=== PATIENT | female | born 1990 | race African-American/Black ===

== ENCOUNTER 2023-12-05 04:15 | Inpatient (IN) | payer MEDICAID ==
[2023-12-05] VITALS (7 sets, daily range): BP systolic 134–137; BP diastolic 82–84; PULSE 94–125; RESP 12–22; TEMP 97.9–98.1; O2SAT 97–100
[~2023-12-05] VITALS: Ht 147.3 cm; Wt 68.6 kg
[2023-12-05 05:32] LABS: Basophils # (auto) 0.1 10 ^3/uL (0-0.2); Eosinophils # (auto) 0 10 ^3/uL (0-0.8); Eosinophils % (auto) 0.8 % (0.0-7.0); Hemoglobin 9.5 g/dL (12.2-16.2); Neutrophils # (auto) 2.5 10 ^3/uL (1.6-8.6); White Blood Cell 3.7 10^3/uL (4.4-10.8)
[2023-12-05 05:35] LABS: Basophils % (auto) 1.7 % (0.0-2.0); Hematocrit 28.6 % (36.0-46.0); Lymphocytes # (auto) 0.8 10 ^3/uL (0.4-5.4); Lymphocytes % (auto) 22.5 % (10.0-50.0); Mean Corpuscular Hemoglobin 22.3 pg (28.0-32.0); Mean Corpuscular Hgb Conc. 33.3 g/dL (32.0-36.0); Monocytes # (auto) 0.3 10 ^3/uL (0-1.3); Monocytes % (auto) 7.2 % (0.0-12.0); Neutrophils % (auto) 67.8 % (37.0-80.0); Nucleated Red Blood Cells % 1.3 %; Red Blood Cells 4.27 10^6/uL (4.0-5.20)
[2023-12-05 05:40] LABS: Anion Gap 11 (5-15); Carbon Dioxide 22 mmol/L (20-30); Chloride 105 mmol/L (98-107); Potassium 3.2 mmol/L (3.5-5.1); Red Cell Distribution Width 21.8 % (11.8-14.3); Sodium 138 mmol/L (136-145)
[2023-12-05 05:41] LABS: Calcium 9.9 mg/dL (8.7-10.4)
[2023-12-05 05:46] LABS: Glucose 102 mg/dL (74-106)
[2023-12-05] MEDS: SODIUM CHLORIDE 0.9% 1,000 ML IV ONE ×3 (05:50→09:40)
[2023-12-05] MEDS: HYDROmorphone HCL 2 MG/ML VL/or syr IV ONE (05:50)
[2023-12-05] MEDS: ONDANSETRON HCL 4 MG/2 ML VIAL IV ONE (05:54)
[2023-12-05 06:08] LABS: BUN/Creatinine Ratio 6.7 (10.0-20.0); Blood Urea Nitrogen < 5 mg/dL (9-23)
[2023-12-05 06:59] LABS: Anisocytosis Slight; Hypochromia Moderate; Platelet Estimate Decreased; Target Cell MANY
[2023-12-05] MEDS ORDERED: IBUP-1455 PO (08:57)
[2023-12-05] MEDS ORDERED: AMOX500C2 PO (08:57)
[2023-12-05] MEDS ORDERED: ACETAMINOPHEN 325 MG TAB PO PRN (09:30)
[2023-12-05] MEDS: SODIUM CHLORIDE 0.9% 1,000 ML IV SCH (09:30)
[2023-12-05] MEDS ORDERED: ENOXAPARIN SOD 40 MG/0.4 ML SYRINGE SC SCH (10:00)
[2023-12-05 10:12] LABS: Alanine Aminotransferase 55 U/L (7-40); Albumin 4.6 g/dL (3.2-4.8); Alkaline Phosphatase 63 U/L (46-116); Aspartate Aminotransferase 50 U/L (13-40); Magnesium 1.8 mg/dL (1.6-2.6); Total Protein 7.9 g/dL (5.7-8.2)
[2023-12-05 10:50] LABS: Urine WBC None Seen /hpf (0 - 5)
[2023-12-05 11:01] LABS: Urine Bacteria FEW /hpf (None Seen); Urine Blood Negative /uL (Negative); Urine Clarity Clear (Clear); Urine Color Light-Yellow (Yellow); Urine Hyaline Cast FEW /lpf (0 - 2); Urine Mucus FEW (None Seen); Urine Protein, UAD Negative (Negative); Urine Urobilinogen Normal (Negative)
[2023-12-05] MEDS: POTASSIUM EFFERVESENT TAB 25 MEQ PO ONE (13:13)
[2023-12-05] MEDS: HYDROmorphone HCL 2 MG/ML VL/or syr IV PRN (13:14)
[2023-12-05] MEDS: ONDANSETRON HCL 4 MG/2 ML VIAL IV PRN (13:15)
[2023-12-05] MEDS: HYDROcodone-ACET 5/325MG TAB PO PRN (16:39)
[2023-12-05] MEDS: IBUPROFEN 800 MG TAB PO PRN (20:30)
[2023-12-06 01:00] VITALS: BP 135/84; PULSE 91; RESP 22; TEMP 97.9; O2SAT 99
[2023-12-06 05:00] VITALS: BP 141/95; PULSE 92; RESP 22; TEMP 98.3; O2SAT 98
[2023-12-06 06:01] LABS: Basophils # (auto) 0 10 ^3/uL (0-0.2); Basophils % (auto) 0.7 % (0.0-2.0); Eosinophils # (auto) 0.1 10 ^3/uL (0-0.8); Hemoglobin 7.8 g/dL (12.2-16.2); Mean Corpuscular Hemoglobin 22.6 pg (28.0-32.0); Mean Corpuscular Hgb Conc. 33.2 g/dL (32.0-36.0); White Blood Cell 3.2 10^3/uL (4.4-10.8)
[2023-12-06 06:04] LABS: Hematocrit 23.4 % (36.0-46.0); Lymphocytes # (auto) 1.5 10 ^3/uL (0.4-5.4); Lymphocytes % (auto) 47.6 % (10.0-50.0); Monocytes # (auto) 0.1 10 ^3/uL (0-1.3); Monocytes % (auto) 4.5 % (0.0-12.0); Neutrophils # (auto) 1.4 10 ^3/uL (1.6-8.6); Neutrophils % (auto) 44.2 % (37.0-80.0); Nucleated Red Blood Cells % 0.8 %; Red Blood Cells 3.43 10^6/uL (4.0-5.20)
[2023-12-06 06:09] LABS: Red Cell Distribution Width 22.2 % (11.8-14.3)
[2023-12-06 06:25] LABS: Alanine Aminotransferase 38 U/L (7-40); Albumin 3.7 g/dL (3.2-4.8); Alkaline Phosphatase 50 U/L (46-116); Anion Gap 6 (5-15); Aspartate Aminotransferase 37 U/L (13-40); Bilirubin, Total 1.3 mg/dL (0.2-1.0); Calcium 8.6 mg/dL (8.5-10.1); Carbon Dioxide 26 mmol/L (20-30); Chloride 106 mmol/L (98-107); Glucose 85 mg/dL (74-106); Potassium 3.5 mmol/L (3.5-5.1); Sodium 138 mmol/L (136-145); Total Protein 6.3 g/dL (5.7-8.2)
[2023-12-06 06:41] LABS: BUN/Creatinine Ratio 7.8 (10.0-20.0); Blood Urea Nitrogen < 5 mg/dL (9-23)
[2023-12-06 09:00] VITALS: BP 122/70; PULSE 110; RESP 18; TEMP 98.3; O2SAT 99
[2023-12-06 12:38] VITALS: BP 145/95; PULSE 86; RESP 18; TEMP 98.5; O2SAT 100
[2023-12-06] MEDS: FERROUS SULFATE 325mg EC TAB PO SCH (16:19)
[2023-12-06] MEDS: MULTIPLE VITAMIN TAB PO ONE (16:19)
[2023-12-06 16:40] VITALS: BP 155/95; PULSE 107; RESP 19; TEMP 98.3; O2SAT 100
[2023-12-06] MEDS: DOCUSATE SOD 100 MG CAP PO SCH (20:57)
[2023-12-06 21:00] VITALS: BP 155/111; PULSE 103; RESP 17; TEMP 98; O2SAT 99
[2023-12-07 01:00] VITALS: BP 158/110; PULSE 83; RESP 17; TEMP 98.3; O2SAT 99
[2023-12-07] MEDS ORDERED: MULTIPLE VITAMIN TAB PO SCH (10:00)
== END 2023-12-07 02:44 | disposition left against medical advice (07) | DRG 662 ==
LOC: EDBD 04:15 → ER 04:15 → OVERFLOW 09:28 → WEST WING 15:28
PROVIDERS: ADMIT Nurse Practitioner Family; ATTEND Nurse Practitioner Acute Care
DX: D57.00 Hb-SS disease with crisis, unspecified (principal); D69.6 Thrombocytopenia, unspecified; D50.9 Iron deficiency anemia, unspecified; E87.6 Hypokalemia; E66.9 Obesity, unspecified; K59.00 Constipation, unspecified; Z53.29 Procedure and treatment not carried out because of patient's decision for other reasons; Z68.31 Body mass index [BMI] 31.0-31.9, adult; Z88.6 Allergy status to analgesic agent; Z91.012 Allergy to eggs; Z91.018 Allergy to other foods
CPT/HCPCS: 36415; 80053; 81001; 83615; 83735; 84702; 85025; 85045; 86850; 86900; 86901; 96361; 96374; 96375; G0378; J2405

== ENCOUNTER 2024-06-12 15:43 | Emergency (ER) | payer MEDICAID ==
[~2024-06-12] VITALS: Ht 147.3 cm; Wt 61.0 kg
[~2024-06-12 15:43] MED LIST: AMOX500C2 PO; IBUP-1455 PO
[2024-06-12] MEDS ORDERED: BACDST PO (18:59)
[2024-06-12] MEDS ORDERED: ACET500T58 PO (18:59)
[2024-06-12] MEDS ORDERED: ZOFR4T PO (19:01)
--- NOTE | 2024-06-12 19:01 | ED.PDOC ---
General HPI Comments 33-YEAR-OLD FEMALE PRESENTS TO ER WITH URINARY COMPLAINT X5 DAYS. PATIENT REPORTS THAT SHE HAS BEEN EXPERIENCING LOWER PELVIC PRESSURE X5 DAYS WITH ASSOCIATED LOWER BACK PAIN, PAINFUL URINATION AND NAUSEA/VOMITING X3 DAYS AND HEMATURIA AND CHILLS X1 DAY. REPORTS THAT SHE HAS BEEN TAKING IBUPROFEN ALONG WITH OTC "AZO" FOR HER SYMPTOMS WITH SLIGHT RELIEF. SHE REPORTS 8/10 LOWER PELVIC PRESSURE PAIN WITH RADIATION TOWARDS THE LOWER BACK. PATIENT PRESENTS TO ER WITH LOW-GRADE FEVER ON ARRIVAL AT 99.8 F, AMBULATORY, ALERT AND ORIENTED X4, WITH STEADY GAIT, DENYING ANY KNOWN FEVER PRIOR TO ARRIVAL TO ER. DENIES NIGHT SWEATS, ABDOMINAL PAIN, HEADACHE, DIZZINESS, FLANK PAIN, FURTHER CHANGES N URINATION OR ANY FURTHER SYMPTOMS/COMPLAINTS Chief Complaint: Urinary Time Seen by MD: 18:12 Primary Care Provider: BECKI Rivas notes: Nurses Notes, Medications, Allergies Allergies: Coded Allergies: Hydrocodone (Verified Allergy, Mild, itchy hands, 12/05/23) Egg-derived Products (Verified Allergy, Unknown, 12/05/23) Pineapple (Verified Allergy, Unknown, 12/05/23) Home Meds Active Scripts Ondansetron Odt 4MG Tab (ZOFRAN PO) 4 Mg Tb, 4 MG PO TID PRN, #14 TAB 0 Refills ODT TAB-DISSOLVE IN MOUTH, THEN SWALLOW Prov:NICOLE LAKHANI 06/12/24 Acetaminophen (Acetaminophen) 500 Mg Tab, 500 MG PO Q4HPRN, #30 TAB 0 Refills Prov:NICOLE LAKHANI 06/12/24 Sulfamethoxazole W/Trimethopri (Bactrim Ds Tablet) 1 Tab Tb, 1 TAB PO BID for 7 Days, #14 TAB 0 Refills Prov:NICOLE LAKHANI 06/12/24 Reported Medications Ibuprofen Micronized (Ibuprofen) 800 Mg Tab, 1 TAB PO Q8HPRN PRN 12/05/23 Amoxicillin Trihydrate (Amoxicillin) 500 Mg Cap, 1 CAP PO TID 12/05/23 Information Source: Patient Mode of Arrival: Ambulatory Past Medical History Past Medical History (Other): SICKLE CELL ANEMIA Surgical History: , Tonsillectomy 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 TARIFF SUPERVISOR History Family History Family History: Unknown Social History Smoker: Non-Smoker Alcohol: Denies ETOH Use Drugs: Denies Drug Use Lives In: Home Constitutional: reports: others (As stated in HPI) EENTM: denies: blurred vision, double vision, ear bleeding, ear discharge, ear drainage, ear pain, ear ringing, eye pain, eye redness, hearing loss, mouth pain, mouth swelling, nasal discharge, nose bleeding, nose congestion, nose pain, photophobia, tearing, throat pain, throat swelling, voice changes, others Respiratory: denies: cough, hemoptysis, orthopnea, SOB at rest, shortness of breath, SOB with excertion, stridor, wheezing, others Cardiovascular: denies: chest pain, dizzy spells, diaphoresis, Dyspnea on exertion, edema, irregular heart beat, left arm pain, lightheadedness, palpitations, PND, syncope, others Gastrointestinal: denies: abdomen distended, abdominal pain, blood streaked bowels, constipated, diarrhea, dysphagia, difficulty swallowing, hematemesis, melena, nausea, poor appetite, poor fluid intake, rectal bleeding, rectal pain, vomiting, others Genitourinary: reports: others (As stated in HPI) Neurological: denies: dizziness, fainting, headache, left sided numbness, left sided weakness, numbness, paresthesia, pre-existing deficit, right sided numbness, right sided weakness, seizure, speech problems, tingling, tremors, weakness, others Musculoskeletal: reports: others (As stated in HPI) Integumetry: denies: bruises, change in color, change in hair/nails, dryness, laceration, lesions, lumps, rash, wounds, others Allergic/Immunocompromised: denies: Difficulty Healing, Frequent Infections, Hives, Itching, others Hematologic/Lymphatic: denies: anemia, blood clots, easy bleeding, easy bruising, swollen glands, others Endocrine: denies: excessive hunger, excessive sweating, excessive thirst, excessive urination, flushing, intolerance to cold, intolerance to heat, unexplained weight gain, unexplained weight loss, others Psychiatric: denies: anxiety, bipolar disorder, depression, hopeless, panic disorder, schizophrenia, sleepless, suicidal, others Physical Exam General Appearance: No Apparent Distress, Normal HEENT: PERRL/EOMI Neck: Full Range of Motion, Non-Tender, Normal Respiratory: Chest Non-Tender, Lungs Clear, No Accessory Muscle Use, No Respiratory Distress, Normal Breath Sounds Cardiovascular: No Murmur, No Gallop, Regular Rate/Rhythm Breast Exam: Deferred Gastrointestinal: No Organomegaly, No Pulsatile Mass, Normal Bowel Sounds, Soft, Suprapubic (Slight TTP to suprapubic region noted. No rebound/guarding noted) Genitalia: Deferred Pelvic: Deferred Rectal: Deferred Extremities: Normal capillary refill, Normal range of motion Musculoskeletal : Extremity Location: Back (Slight TTP centralized the lower lumbar spine noted. No TTP to bilateral flanks or CVA tenderness noted bilaterally. Steady gait appreciated) Neurologic: Alert, manager primary II-XII nml as Tested, No Motor Deficits, Normal Affect, Normal Mood, No Sensory Deficits Cerebellar Function: Normal Reflexes: Normal Skin: Dry, Normal Color, Warm Peripheral Pulses: 2+ Radial (R), 2+ Radial (L), 2+ Brachial (R), 2+ Brachial (L) Lymphatic: No Adenopathy Was a procedure done? Was a procedure done?: No Sedation Sedation?: No Differential Diagnosis Kidney stone (Female): N/A Urinary Problem (Female): Intrauterine , Pyelonephritis, Urinary ret ention, Urolithiasis, Other (Urosepsis) X-Ray, Labs, Meds, VS Vital Signs Date Time Temp Pulse Resp B/P (MAP) Pulse Ox O2 Delivery O2 Flow Rate FiO2 06/12/24 20:47 103.3 06/12/24 20:15 103.1 119 14 149/95 (113) 98 103.1 06/12/24 18:32 97 17 97 Room Air 06/12/24 18:32 99.7 97 17 147/97 (114) 97 99.7 06/12/24 15:56 99.8 100 16 151/97 (115) 98 Lab Test 06/12/24 15:56 Range/Units Urine Color Light-brown Yellow Urine Clarity Ex.turbid Clear Urine pH 7.5 5.0-9.0 Urine Specific [place] 1.014 1.001-1.035 Urine Protein 2+ H Negative Urine Ketones Trace Negative Urine Blood 2+ H Negative /uL Urine Nitrite Negative Negative Urine Bilirubin Negative Negative Urine Urobilinogen 4 H Negative mg/dL Urine Leukocyte Esterase 3+ Negative /uL Urine RBC 51 0 - 4 /hpf Urine WBC 2765 0 - 5 /hpf Urine WBC Clumps Present None Seen /hpf Urine Squamous Epithelial Cells None seen <5 /hpf Urine Bacteria Few H None Seen /hpf Urine Mucus Few None Seen Urine Glucose Normal Normal mg/dL Urine Test Negative Negative Current Medications Medications (Trade) Dose Ordered Sig/Jolie Route Start Time Stop Time Status Last Admin Acetaminophen (Tylenol Tablet) 650 mg ONCE ONCE PO 06/12/24 18:45 06/12/24 18:46 DC 06/12/24 19:31 Ceftriaxone Sodium 50 ml @ 100 mls/hr ONCE ONCE IV 06/12/24 18:45 06/12/24 19:14 DC 06/12/24 19:34 Ondansetron HCl (Zofran Po) 4 mg ONCE ONCE PO 06/12/24 18:45 06/12/24 18:46 DC 06/12/24 19:31 Sodium Chloride 1,000 ml @ 1,000 mls/hr Q1H ONCE IV 06/12/24 19:15 06/12/24 20:14 DC 06/12/24 19:27 Urinalysis reviewed-urine leukocyte esterase 3+, urine blood 2+, urine nitrites negative Urine reviewed-negative Hep-Lock IV ordered NS 1 L IV ordered Rocephin 1 g IV ordered Zofran 4 mg p.o. ordered CBC ordered- patient refused BMP ordered- patient refused Tylenol 650 mg PO ordered Ibuprofen 800 mg PO ordered Advised to drink plenty of fluids Advised to f/u with PCP in 1-2 days Patient stated she no longer wanted to stay in ER and would like to leave AMA Several attempts were made to convince patient to stay for further evaluation/treatment without success Risks of leaving AMA were discussed with patient in full details including risk of sepsis and risk of . Patient verbalized understanding Patient left the ER AMA and refused to sign AMA paperwork Time of 1ST Reevaluation: 18:24 Reevaluation 1ST: N/A Patient Education/Counseling: Diagnosis, Treatment, Need For Follow Up, Other (Patient left ER AMA) Family Education/Counseling: No Family Present Departure 1 Departure Time of Disposition: 20:54 Impression: Primary Impression: UTI (urinary tract infection) Qualified Codes: N30.01 - Acute cystitis with hematuria Disposition: 07 LEFT AGAINST MEDICAL ADVICE Condition: Serious Critical Care Note Critical Care Time?: No Stability Stability form required: No Heart Score Heart Score: Heart Score Response (Comments) Value History N/A 0 EKG N/A 0 Age N/A 0 Risk Factors N/A 0 Troponin N/A 0 Total 0 NICOLE LAKHANI Jun 12, 2024 19:01
[2024-06-12] MEDS: SODIUM CHLORIDE 0.9% 1,000 ML IV ONE (19:27)
[2024-06-12] MEDS: ACETAMINOPHEN 325 MG TAB PO ONE (19:31)
[2024-06-12] MEDS: ONDANSETRON ODT 4 MG TAB PO ONE (19:31)
[2024-06-12] MEDS: cefTRIAXone 1GM/50ML D5W 50 ML IV ONE (19:34)
[2024-06-12 20:15] VITALS: BP 149/95; PULSE 119; RESP 14; O2SAT 98
[2024-06-12 20:55] VITALS: TEMP 103.3
[2024-06-12] MEDS: IBUPROFEN 800 MG TAB PO ONE (20:55)
== END 2024-06-12 20:54 | disposition left against medical advice (07) ==
LOC: ER 15:43
DX: N39.0 Urinary tract infection, site not specified (principal); Z88.8 Allergy status to other drugs, medicaments and biological substances; Z79.899 Other long term (current) drug therapy; Z98.890 Other specified postprocedural states; Z90.89 Acquired absence of other organs
CPT/HCPCS: 96365; 99284; J0696; J7030; Q0162

== ENCOUNTER 2024-08-14 09:12 | Inpatient (IN) | payer MEDICAID ==
[~2024-08-14] VITALS: Ht 147.3 cm; Wt 56.0 kg
[2024-08-14 10:28] LABS: Urine Bacteria FEW /hpf (None Seen); Urine Blood 1+ /uL (Negative); Urine Clarity Clear (Clear); Urine Color Yellow (Yellow); Urine Protein, UAD 3+ (Negative); Urine Specific Gravity 1.018 (1.001-1.035); Urine Squamous Epithelial Cell FEW /hpf (<5); Urine Urobilinogen 4 mg/dL (Negative); Urine WBC 9 /HPF (0-5)
[2024-08-14 10:54] LABS: Basophils # (auto) 0 10 ^3/uL (0-0.2); Eosinophils # (auto) 0 10 ^3/uL (0-0.8)
[2024-08-14 10:57] LABS: Basophils % (auto) 0.2 % (0.0-2.0); Hematocrit 34.6 % (36.0-46.0); Hemoglobin 11.3 g/dL (12.2-16.2); Lymphocytes # (auto) 4.6 10 ^3/uL (0.4-5.4); Lymphocytes % (auto) 24.2 % (10.0-50.0); Mean Corpuscular Hgb Conc. 32.6 g/dL (32.0-36.0); Mean Corpuscular Volume 64.4 fL (80.0-100.0); Monocytes # (auto) 0.7 10 ^3/uL (0-1.3); Monocytes % (auto) 3.5 % (0.0-12.0); Neutrophils # (auto) 13.7 10 ^3/uL (1.6-8.6); Neutrophils % (auto) 72.1 % (37.0-80.0); Nucleated Red Blood Cells % 0.8 %; Platelet Count (auto) 93 10^3/uL (140-450); Red Blood Cells 5.38 10^6/uL (4.0-5.20)
[2024-08-14 11:00] LABS: Red Cell Distribution Width 35.9 % (11.8-14.3)
[2024-08-14 11:30] LABS: Alkaline Phosphatase 82 U/L (46-116); Anion Gap 13 (5-15); BUN/Creatinine Ratio 7.8 (10.0-20.0); Blood Urea Nitrogen 12 mg/dL (9-23); Carbon Dioxide 30 mmol/L (20-31)
[2024-08-14 11:32] LABS: Alanine Aminotransferase 113 U/L (7-40); Aspartate Aminotransferase 116 U/L (13-40); Bilirubin, Total 2.8 mg/dL (0.2-1.0); Calcium 10.5 mg/dL (8.7-10.4); Chloride 92 mmol/L (98-107); Glucose 131 mg/dL (74-106); Potassium 3.3 mmol/L (3.5-5.1); Sodium 135 mmol/L (136-145)
[2024-08-14 11:33] LABS: Total Protein 8.6 g/dL (5.7-8.2)
--- NOTE | 2024-08-14 11:35 | ED.PDOC ---
GI ASSESSMENT HPI Comments 33 year old female presents to the ED with chief complaint of abdominal pain. Patient reports that she has been experiencing LUQ abdominal pain with associated fever, nausea, vomiting, and constipation for the past 4 days. Patient relays that she took Tylenol with no relief and her pain worsened today. Patient denies any chills, dysuria, dizziness, headache, chest pain, or SOB. Chief Complaint: Abdominal Pain Time Seen by MD: 11:29 Primary Care Provider: irma Rivas Notes: Nurses Notes, Medications, Allergies Allergies: Coded Allergies: Hydrocodone (Verified Allergy, Mild, itchy hands, 12/05/23) Egg-derived Products (Verified Allergy, Unknown, 12/05/23) Pineapple (Verified Allergy, Unknown, 12/05/23) Home Meds Reported Medications Ibuprofen Micronized (Ibuprofen) 800 Mg Tab, 1 TAB PO Q8HPRN PRN 12/05/23 Amoxicillin Trihydrate (Amoxicillin) 500 Mg Cap, 1 CAP PO TID 12/05/23 Information Source: Patient Mode of Arrival: Ambulatory Timing: Days Duration: Since onset Prehospital treatment: None Quality: Sharp Vomitus: Watery Stool: Impaction Severity: Moderate Recent: None Recent Hx of: None Pain Location: LUQ Modifying Factors: Nothing Associated sign and symptoms: Nausea, Vomiting, Constipation, Abdominal Pain Past Medical History PAST MEDICAL HISTORY: UTI'S Surgical History: , Tonsillectomy 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 Pertinent CLOTH MERCERIZER OPERATOR History Family History Family History: Unknown Social History Smoker: Non-Smoker Alcohol: Denies ETOH Use Drugs: Denies Drug Use Lives In: Home Constitutional: reports: fever; denies: chills, diaphoresis, fatigue, malaise, sweats, weakness, others EENTM: denies: blurred vision, double vision, ear bleeding, ear discharge, ear drainage, ear pain, ear ringing, eye pain, eye redness, hearing loss, mouth pain, mouth swelling, nasal discharge, nose bleeding, nose congestion, nose pain, photophobia, tearing, throat pain, throat swelling, voice changes, others Respiratory: denies: cough, hemoptysis, orthopnea, SOB at rest, shortness of breath, SOB with excertion, stridor, wheezing, others Cardiovascular: denies: chest pain, dizzy spells, diaphoresis, Dyspnea on exertion, edema, irregular heart beat, left arm pain, lightheadedness, palpitations, PND, syncope, others Gastrointestinal: reports: abdominal pain, constipated, nausea, vomiting; denies: abdomen distended, blood streaked bowels, diarrhea, dysphagia, difficulty swallowing, hematemesis, melena, poor appetite, poor fluid intake, rectal bleeding, rectal pain, others Genitourinary: denies: abnormal vagina bleeding, burning, dyspareunia, dysuria, flank pain, frequency, hematuria, incontinence, pain, , vagina discharge, urgency, others Neurological: denies: dizziness, fainting, headache, left sided numbness, left sided weakness, numbness, paresthesia, pre-existing deficit, right sided numbness, right sided weakness, seizure, speech problems, tingling, tremors, weakness, others Musculoskeletal: denies: back pain, gout, joint pain, joint swelling, muscle pain, muscle stiffness, neck pain, others Integumetry: denies: bruises, change in color, change in hair/nails, dryness, laceration, lesions, lumps, rash, wounds, others Allergic/Immunocompromised: denies: Difficulty Healing, Frequent Infections, Hives, Itching, others Hematologic/Lymphatic: denies: anemia, blood clots, easy bleeding, easy bruising, swollen glands, others Endocrine: denies: excessive hunger, excessive sweating, excessive thirst, excessive urination, flushing, intolerance to cold, intolerance to heat, unex plained weight gain, unexplained weight loss, others Psychiatric: denies: anxiety, bipolar disorder, depression, hopeless, panic disorder, schizophrenia, sleepless, suicidal, others All Other Systems: Reviewed and Negative Physical Exam General Appearance: No Apparent Distress, Normal HEENT: Normal ENT Inspection, PERRL/EOMI Neck: Full Range of Motion, Non-Tender, Normal, Normal Inspection Respiratory: Chest Non-Tender, Lungs Clear, No Accessory Muscle Use, No Respiratory Distress, Normal Breath Sounds Cardiovascular: No Edema, No JVD, No Murmur, No Gallop, Normal Peripheral Pulses, Regular Rate/Rhythm Breast Exam: Deferred Gastrointestinal: No Organomegaly, Non Tender, No Pulsatile Mass, Normal Bowel Sounds, Soft Genitalia: Deferred Pelvic: Deferred Rectal: Deferred Extremities: No calf tenderness, Normal capillary refill, Normal inspection, Normal range of motion, Non-tender, No pedal edema Musculoskeletal : Apperance: Normal Neurologic: Alert, integrated pest management technician II-XII nml as Tested, No Motor Deficits, Normal Affect, Normal Mood, No Sensory Deficits Cerebellar Function: Normal Reflexes: Normal Skin: Dry, Normal Color, Warm Lymphatic: No Adenopathy Was a procedure done? Was a procedure done?: No GI differential Dx Differential Diagnosis: Gastroenteritis, UTI, Urolithiasis, Dehydration, Food Poisoning, Hypovolemia, Impaction X-Ray, Labs, Meds, VS Vital Signs Date Time Temp Pulse Resp B/P (MAP) Pulse Ox O2 Delivery O2 Flow Rate FiO2 08/14/24 15:20 99.1 73 18 142/97 (112) 95 99.1 08/14/24 14:15 77 17 137/77 08/14/24 13:08 130 18 142/100 08/14/24 13:06 99.4 130 18 143/100 (114) 98 99.4 08/14/24 13:06 130 17 98 Room Air 08/14/24 09:25 98.9 130 16 130/93 (105) 99 Lab Test 08/14/24 10:29 08/14/24 09:29 Range/Units White Blood Count 19.0 H 4.4-10.8 10^3/uL Red Blood Count 5.38 H 4.0-5.20 10^6/uL Hemoglobin 11.3 L 12.2-16.2 g/dL Hematocrit 34.6 L 36.0-46.0 % Mean Corpuscular Volume 64.4 L 80.0-100.0 fL Mean Corpuscular Hemoglobin 21.0 L 28.0-32.0 pg Mean Corpuscular Hemoglobin Concent 32.6 32.0-36.0 g/dL Red Cell Distribution Width 35.9 H 11.8-14.3 % Platelet Count 93 L 140-450 10^3/uL Mean Platelet Volume 7.8 6.9-10.8 fL Neutrophils (%) (Auto) 72.1 37.0-80.0 % Lymphocytes (%) (Auto) 24.2 10.0-50.0 % Monocytes (%) (Auto) 3.5 0.0-12.0 % Eosinophils (%) (Auto) 0.0 0.0-7.0 % Basophils (%) (Auto) 0.2 0.0-2.0 % Neutrophils # (Auto) 13.7 H 1.6-8.6 10 ^3/uL Lymphocytes # (Auto) 4.6 0.4-5.4 10 ^3/uL Monocytes # (Auto) 0.7 0-1.3 10 ^3/uL Eosinophils # (Auto) 0 0-0.8 10 ^3/uL Basophils # (Auto) 0 0-0.2 10 ^3/uL Nucleated Red Blood Cells 0.8 % Platelet Estimate Decreased Poikilocytosis (manual) Marked Anisocytosis (manual) Marked Microcytosis Marked Target Cells Many Tear Drop Cells Few Sodium Level 135 L 136-145 mmol/L Potassium Level 3.3 L 3.5-5.1 mmol/L Chloride Level 92 L 98-107 mmol/L Carbon Dioxide Level 30 20-31 mmol/L Anion Gap 13 5-15 Blood Urea Nitrogen 12 9-23 mg/dL Creatinine 1.54 H 0.550-1.02 mg/dL Glomerular Filtration Rate Calc 45 >90 mL/min BUN/Creatinine Ratio 7.8 L 10.0-20.0 Serum Glucose 131 H 74-106 mg/dL Calcium Level 10.5 H 8.7-10.4 mg/dL Total Bilirubin 2.8 H 0.2-1.0 mg/dL Aspartate Amino Transferase (AST) 116 H 13-40 U/L Alanine Aminotransferase (ALT) 113 H 7-40 U/L Alkaline Phosphatase 82 46-116 U/L Total Protein 8.6 H 5.7-8.2 g/dL Albumin 5.0 H 3.2-4.8 g/dL Lipase 36 12-53 U/L Urine Color Yellow Yellow Urine Clarity Clear Clear Urine pH 7.0 5.0-9.0 Urine Specific [place] 1.018 1.001-1.035 Urine Protein 3+ H Negative Urine Ketones 1+ H Negative Urine Blood 1+ H Negative /uL Urine Nitrite Negative Negative Urine Bilirubin 1+ H Negative Urine Urobilinogen 4 H Negative mg/dL Urine Leukocyte Esterase Negative Negative /uL Urine RBC 2 0 - 4 /hpf Urine Microscopic WBC 9 H 0-5 /HPF Urine Squamous Epithelial Cells Few <5 /hpf Urine Bacteria Few H None Seen /hpf Urine Glucose Trace Normal mg/dL Current Medications Medications (Trade) Dose Ordered Sig/Jolie Route Start Time Stop Time Status Last Admin Sodium Chloride 1,000 ml @ 1,000 mls/hr Q1H ONCE IV 08/14/24 10:15 08/14/24 11:14 DC 08/14/24 13:08 Ondansetron HCl (Zofran) 4 mg ONCE ONCE IV 08/14/24 10:15 08/14/24 10:16 DC 08/14/24 13:08 Morphine Sulfate 4 mg ONCE ONCE IV 08/14/24 10:15 08/14/24 10:16 DC 08/14/24 13:08 Ondansetron HCl (Zofran) 4 mg ONCE ONCE IV 08/14/24 14:15 08/14/24 14:16 DC 08/14/24 14:33 Morphine Sulfate 4 mg ONCE ONCE IV 08/14/24 14:15 08/14/24 14:54 DC 08/14/24 14:15 Sodium Chloride 1,000 ml @ 1,000 mls/hr Q1H ONCE IV 08/14/24 14:15 08/14/24 15:14 DC 08/14/24 14:27 Time of 1ST Reevaluation: 12:29 Reevaluation 1ST: Unchanged Patient Education/Counseling: Diagnosis, Treatment Family Education/Counseling: No Family Present Additional Information I reviewed the following notes from patient's past medical encounters: 06/12/24 for pelvic pain The following tests were ordered, and results were reviewed by me: CBC, CMP, UA, Lipase, RBC Morphology I reviewed and agreed with the following test results read by other providers: None Additional Information was gathered from interviewing the following independent historians: None I discussed treatment and results with medical personnel. Departure 1 Departure Time of Disposition: 16:40 (Patient presented with abdominal pain that was concerning for possible appendicits, gastritis, cholecystitis, colitis, gastroenteritis, sbo, or orther possible surgical emergency. Data: 1. I ordered and reviewed the result of at least 3 labs including a CBC, BMP, and Urinalysis. 2. I independently interpreted the following tests: Ultrasound is concerning for biliary sludge .Risk:This patient has a high risk of morbidity due to further diagnostic testing or treatment and may suffer from an acute abdominal process disorder. Workup reveals transaminitis, dehydration elevated bilirubin. and patient should be admitted for further workup. and possible expert consultation. ) Impression: Primary Impression: Intractable abdominal pain Additional Impressions: Transaminitis Projectile vomiting with nausea Disposition: ADMITTED INPATIENT Admit to: Med Surg Condition: Serious Critical Care Note Critical Care Time?: Yes Critical care comment: Intractable abdominal pain Authorized and Performed by: Brandi Walker MD Total critical care time: Approximately 34 minutes Due to a high probability of clinically significant, life threatening deterioration, the patient required my highest level of preparedness to intervene emergently and I personally spent this critical care time directly and personally managing the patient. This critical care time included obtaining a history; examining the patient; pulse oximetry; ordering and review of studies; arranging urgent treatment with development of a management plan; evaluation of patient's response to treatment; frequent reassessment; and, discussions with other providers. This critical care time was performed to assess and manage the high probability of imminent, life-threatening deterioration that could result in multi-organ failure. It was exclusive of separately billable procedures and treating other patients and teaching time. Please see my other sections and the rest of the note for further information on patient assessment and treatment. Stability Stability form required: No Heart Score Heart Score: Heart Score Response (Comments) Value History N/A 0 EKG N/A 0 Age N/A 0 Risk Factors N/A 0 Troponin N/A 0 Total 0 I personally scribed for BRANDI WALKER MD ([email or web address]) on 08/14/24 at 11:35. Electronically submitted by Todd Galarza ([email or web address]). BRANDI WALKER MD Aug 14, 2024 11:35
[2024-08-14 11:51] LABS: Lipase 36 U/L (12-53)
[2024-08-14 12:55] LABS: Anisocytosis Marked; Platelet Estimate Decreased; Target Cell MANY; Tear Drop Cells FEW
[2024-08-14] MEDS: SODIUM CHLORIDE 0.9% 1,000 ML IV ONE ×3 (13:08→16:45)
[2024-08-14] MEDS: MORPHINE SULFATE 4 MG/ML SYR/VIAL IV ONE ×3 (13:08→22:07)
[2024-08-14] MEDS: ONDANSETRON HCL 4 MG/2 ML VIAL IV ONE ×3 (13:08→22:07)
--- NOTE | 2024-08-14 15:34 | DVH ---
Ultrasound right upper quadrant INDICATION: ruq pain Technique: 2-D real-time ultrasound was performed with axial and sagittal images submitted for evalu ation. FINDINGS: Normal in size measuring 16 cm an echogenic without mass. There is sludge in the gallbladder. Gallbladder wall is normal measuring 1.9 mm. Common duct normal s ize 3.8 mm. Negative sonographic Farooq's sign Pancreas is normal in appearance. Right kidney 9.4 cm in length without mass stone or hydronephrosis. No free fluid IMPRESSION: 1. Sludge in the gallbladder. No biliary dilatation 2. Fatty liver.
[2024-08-14 21:07] VITALS: PULSE 106; RESP 18; O2SAT 99
--- NOTE | 2024-08-14 21:12 | DVHHP2 ---
History of Present Illness Reason for Visit: Abdominal pain History of Present Illness 33-year-old female presents for evaluation of abdominal pain. Patient endorses a four day history of left-sided upper and lower quadrant abdominal pain with associated nausea, vomiting and chills. Patient reports also noticing her urine becoming really dark. Denies diarrhea. Cardiac or respiratory complaints. Past Medical History UTIs Past Surgical History Tonsillectomy and Family History Noncontributory Smoke: No ALCOHOL: none Drugs: None Lives: with Family Review of Systems Review of Systems Review of systems are currently negative otherwise addressed HPI. Allergies: Coded Allergies: Hydrocodone (Verified Allergy, Mild, itchy hands, 12/05/23) Egg-derived Products (Verified Allergy, Unknown, 12/05/23) Pineapple (Verified Allergy, Unknown, 12/05/23) Medications Current Medications Medications Dose Ordered Sig/Jolie Route Start Time Stop Time Status Last Admin Dose Admin Ceftriaxone Sodium 50 ml @ 100 mls/hr DAILY@09 IV 08/15/24 09:00 Metronidazole 100 ml @ 100 mls/hr Q8HR IV 08/14/24 22:00 Ondansetron HCl 4 mg Q4HP PRN IV 08/14/24 18:45 Morphine Sulfate 2 mg Q4HPRN PRN IV 08/14/24 18:45 Exam Vital Signs Vital Signs Date Time Temp Pulse Resp B/P (MAP) Pulse Ox O2 Delivery O2 Flow Rate FiO2 08/14/24 19:55 99.3 106 18 143/72 (95) 98 99.3 08/14/24 13:06 Room Air Exam Gen: 33-year-old female in mild distress Skin: Warm, dry, normal color and texture, no rash. HEENT: Normocephalic atraumatic, mucous membranes moist and pink. Neck: Cervical and supraclavicular nodes normal without enlargement, trachea is midline, thyroid gland is normal without masses. Pulmonary: Clear to auscultation and percussion bilaterally. Cardiac: Regular rate and rhythm. No murmur Abdomen: Soft, left-sided abdominal pain, nondistended, bowel sounds present all 4 quadrants, no guarding, no rigidity, no organomegaly. Extremities: No cyanosis, clubbing, no edema Neuro: Cranial nerves II through XII grossly intact, normal affect and speech, no focal motor deficits. Labs/Xrays ORDERING PHYSICIAN: BRANDI WALKER MD PROCEDURE(s): GBUS - GALLBLADDER REASON: ruq pain ORDER NUMBER(s): [id number], ACCESSION NUMBER(s): [id number] Ultrasound right upper quadrant INDICATION: ruq pain Technique: 2-D real-time ultrasound was performed with axial and sagittal images submitted for evaluation. FINDINGS: Normal in size measuring 16 cm an echogenic without mass. There is sludge in the gallbladder. Gallbladder wall is normal measuring 1.9 mm. Common duct normal size 3.8 mm. Negative sonographic Farooq's sign Pancreas is normal in appearance. Right kidney 9.4 cm in length without mass stone or hydronephrosis. No free fluid IMPRESSION: 1. Sludge in the gallbladder. No biliary dilatation 2. Fatty liver. Labs Test 08/14/24 10:29 08/14/24 09:29 Range/Units White Blood Count 19.0 H 4.4-10.8 10^3/uL Red Blood Count 5.38 H 4.0-5.20 10^6/uL Hemoglobin 11.3 L 12.2-16.2 g/dL Hematocrit 34.6 L 36.0-46.0 % Mean Corpuscular Volume 64.4 L 80.0-100.0 fL Mean Corpuscular Hemoglobin 21.0 L 28.0-32.0 pg Mean Corpuscular Hemoglobin Concent 32.6 32.0-36.0 g/dL Red Cell Distribution Width 35.9 H 11.8-14.3 % Platelet Count 93 L 140-450 10^3/uL Mean Platelet Volume 7.8 6.9-10.8 fL Neutrophils (%) (Auto) 72.1 37.0-80.0 % Lymphocytes (%) (Auto) 24.2 10.0-50.0 % Monocytes (%) (Auto) 3.5 0.0-12.0 % Eosinophils (%) (Auto) 0.0 0.0-7.0 % Basophils (%) (Auto) 0.2 0.0-2.0 % Neutrophils # (Auto) 13.7 H 1.6-8.6 10 ^3/uL Lymphocytes # (Auto) 4.6 0.4-5.4 10 ^3/uL Monocytes # (Auto) 0.7 0-1.3 10 ^3/uL Eosinophils # (Auto) 0 0-0.8 10 ^3/uL Basophils # (Auto) 0 0-0.2 10 ^3/uL Nucleated Red Blood Cells 0.8 % Platelet Estimate Decreased Poikilocytosis (manual) Marked Anisocytosis (manual) Marked Microcytosis Marked Target Cells Many Tear Drop Cells Few Sodium Level 135 L 136-145 mmol/L Potassium Level 3.3 L 3.5-5.1 mmol/L Chloride Level 92 L 98-107 mmol/L Carbon Dioxide Level 30 20-31 mmol/L Anion Gap 13 5-15 Blood Urea Nitrogen 12 9-23 mg/dL Creatinine 1.54 H 0.550-1.02 mg/dL Glomerular Filtration Rate Calc 45 >90 mL/min BUN/Creatinine Ratio 7.8 L 10.0-20.0 Serum Glucose 131 H 74-106 mg/dL Calcium Level 10.5 H 8.7-10.4 mg/dL Total Bilirubin 2.8 H 0.2-1.0 mg/dL Aspartate Amino Transferase (AST) 116 H 13-40 U/L Alanine Aminotransferase (ALT) 113 H 7-40 U/L Alkaline Phosphatase 82 46-116 U/L Total Protein 8.6 H 5.7-8.2 g/dL Albumin 5.0 H 3.2-4.8 g/dL Lipase 36 12-53 U/L Urine Color Yellow Yellow Urine Clarity Clear Clear Urine pH 7.0 5.0-9.0 Urine Specific [place] 1.018 1.001-1.035 Urine Protein 3+ H Negative Urine Ketones 1+ H Negative Urine Blood 1+ H Negative /uL Urine Nitrite Negative Negative Urine Bilirubin 1+ H Negative Urine Urobilinogen 4 H Negative mg/dL Urine Leukocyte Esterase Negative Negative /uL Urine RBC 2 0 - 4 /hpf Urine Microscopic WBC 9 H 0-5 /HPF Urine Squamous Epithelial Cells Few <5 /hpf Urine Bacteria Few H None Seen /hpf Urine Glucose Trace Normal mg/dL Assessment/Plan Assessment/Plan Assessment Acute abdominal pain Transaminitis Acute kidney injury Plan Admit the patient to Med surge to the hospitalist MRCP pending Maintenance IV fluids Pain management Continue treatment per orders. Plan discussed with: Patient My Orders Orders - STACEY GLEASONP Procedure Category Date Status Time Mrcp Mri MRI 08/14/24 Logged 18:40 * [facility] [place] [facility] CONS 08/14/24 Transmitted 18:40 Sod Chl 0.9%/ Kcl PHA 08/14/24 In Process 20meq 18:45 Ceftriaxone 1gm/50ml PHA 08/15/24 In Process D5w (Rocephin) 09:00 Metronidazole PHA 08/14/24 In Process 500mg/100ml (Flagyl 22:00 Admit ADMIT 08/14/24 Transmitted 18:40 Ondansetron Hcl PHA 08/14/24 In Process (Zofran) 18:45 Complete Blood Count LAB 08/15/24 Verified 04:00 Comprehensive LAB 08/15/24 Verified Metabolic Panel 04:00 Npo (Nothing By DIET 08/15/24 Transmitted Mouth) Diet Breakfast Condition: Stable MIK 08/14/24 In Process 18:40 Bedrest With Bathroom MIK 08/14/24 In Process Privileg 18:40 Morphine Sulfate PHA 08/14/24 In Process Injection 18:45 Date of Service: Aug 14, 2024 Billing Provider: STACEY GLEASON Common Visit Codes: 54705-RITGAHD INP/OBS CARE (HIGH) STACEY GLEASON Aug 14, 2024 21:12
[2024-08-14 21:30] VITALS: BP 166/112; PULSE 104; RESP 20; TEMP 98.3; O2SAT 98
[2024-08-14 21:51] VITALS: BP 166/112; PULSE 104; RESP 20; TEMP 98.3; O2SAT 98
[2024-08-14] MEDS: metroNIDAZOLE 500MG/100ML 100 ML IV SCH (22:06)
[2024-08-14] MEDS: SOD CHL 0.9%/ KCL 20MEQ 1,000 ML IV ONE (22:08)
[2024-08-15] VITALS (7 sets, daily range): BP systolic 138–152; BP diastolic 92–107; PULSE 93–110; RESP 17–19; TEMP 98.5–99.1; O2SAT 95–100
[2024-08-15] MEDS: CEFEPIME 2GM/50ML NS 50 ML IV ONE (00:50)
[2024-08-15] MEDS: ONDANSETRON HCL 4 MG/2 ML VIAL IV PRN (04:27)
[2024-08-15 07:46] LABS: Basophils # (auto) 0 10 ^3/uL (0-0.2); Basophils % (auto) 0.1 % (0.0-2.0); Eosinophils # (auto) 0 10 ^3/uL (0-0.8); Hemoglobin 7.8 g/dL (12.2-16.2); Lymphocytes # (auto) 1.2 10 ^3/uL (0.4-5.4); Monocytes # (auto) 0.4 10 ^3/uL (0-1.3); Neutrophils # (auto) 7.8 10 ^3/uL (1.6-8.6); White Blood Cell 9.4 10^3/uL (4.4-10.8)
[2024-08-15 07:49] LABS: Albumin 3.2 g/dL (3.2-4.8); Alkaline Phosphatase 49 U/L (46-116); Anion Gap 11 (5-15); BUN/Creatinine Ratio 8.2 (10.0-20.0); Carbon Dioxide 24 mmol/L (20-31); Chloride 101 mmol/L (98-107); Glucose 92 mg/dL (74-106); Hematocrit 23.1 % (36.0-46.0); Lymphocytes % (auto) 12.7 % (10.0-50.0); Mean Corpuscular Hemoglobin 21.9 pg (28.0-32.0); Mean Corpuscular Hgb Conc. 33.7 g/dL (32.0-36.0); Mean Corpuscular Volume 64.9 fL (80.0-100.0); Monocytes % (auto) 4.2 % (0.0-12.0); Nucleated Red Blood Cells % 0.5 %; Platelet Count (auto) 45 10^3/uL (140-450); Red Blood Cells 3.57 10^6/uL (4.0-5.20); Sodium 136 mmol/L (136-145)
[2024-08-15 07:59] LABS: Alanine Aminotransferase 58 U/L (7-40); Aspartate Aminotransferase 78 U/L (13-40); Bilirubin, Total 1.8 mg/dL (0.2-1.0); Blood Urea Nitrogen 8 mg/dL (9-23); Calcium 8.3 mg/dL (8.7-10.4); Potassium 3.3 mmol/L (3.5-5.1); Total Protein 5.5 g/dL (5.7-8.2)
--- NOTE | 2024-08-15 09:03 | DVH ---
MRI Abdomen, Pre and Post Contrast Exam Date: 08/15/2024 08:21 AM Comparison: Ultrasound dated 08/14/2024 History: r/o obstruction Technique: Multisequence multiplanar MRI images were obtained. 1. Coronal T1 Localizer 2. Coronal and axial T2 HASTE 3. Axial T1 in/out of phase, Axial T1 VIBE Melendrez, Axial T1 IR 4. Axial T2 HASTE Fat Saturation 5. Axial T1 FLASH, pre- and post-contrast 6. Axial T1 Fat Saturation, post-contrast 7. Axial Multiple B value diffusion-weighted sequences 8. MRCP including 3D SPACE, Radial 2D slabs and SPACE 3D MIP images Findings: Liver: Borderline hepatomegaly, 16.1 cm craniocaudal. Spleen: Unremarkable. Pancreas: The pancreas is normal in appearance without focal lesions. Gallbladder and ducts: Gallbladder sludge is present. Mild pericholecystic edema. The cystic duct, right and left hepatic ducts, common hepatic duct, and common bile ducts are unremarkable. The wilkinson creatic duct is within normal limits. Adrenal glands: Unremarkable. Kidneys: Normal enhancement without suspicious lesions or hydronephrosis. Visualized bowel: Grossly unremarkable. Vasculature: Unremarkable. Lymphadenopathy: No evidence for lymphadenopathy. Ascites: Absent. Musculoskeletal: Bone marrow signal is normal. IMPRESSION: Gallbladder sludge is present. Mild pericholecystic edema. No intra or extrahepatic biliary duct dilation.
[2024-08-15 09:24] LABS: Target Cell MANY; Tear Drop Cells FEW
[2024-08-15 09:25] LABS: Anisocytosis Marked; Hypochromia Moderate; Platelet Estimate Decreased
[2024-08-15] MEDS: cefTRIAXone 1GM/50ML D5W 50 ML IV SCH (09:45)
[2024-08-15] MEDS: MORPHINE SULFATE INJ 2 MG/ml SYRG IV PRN (09:47)
[2024-08-15 09:59] LABS: Hematocrit 25.5 % (36.0-46.0); Hemoglobin 8.5 g/dL (12.2-16.2)
[2024-08-15] MEDS ORDERED: POTASSIUM EFFERVESENT TAB 25 MEQ GT ONE (10:15)
[2024-08-15] MEDS: POTASSIUM CHL 20MEQ/100ML 100 ML IV ONE (12:47)
[2024-08-15] MEDS: D5W/SOD CHLO 0.9% 1,000 ML IV SCH (12:54)
[2024-08-15] MEDS: hydroxyUREA 500 MG CAP PO ONE (13:18)
[2024-08-15 13:30] LABS: Basophils # (auto) 0 10 ^3/uL (0-0.2); Basophils % (auto) 0.2 % (0.0-2.0); Eosinophils # (auto) 0 10 ^3/uL (0-0.8); Eosinophils % (auto) 0.1 % (0.0-7.0); Hematocrit 24.6 % (36.0-46.0); Hemoglobin 7.9 g/dL (12.2-16.2); Lymphocytes # (auto) 0.8 10 ^3/uL (0.4-5.4); Lymphocytes % (auto) 11.8 % (10.0-50.0); Mean Corpuscular Hemoglobin 21.2 pg (28.0-32.0); Mean Corpuscular Hgb Conc. 32.2 g/dL (32.0-36.0); Mean Corpuscular Volume 65.8 fL (80.0-100.0); Monocytes # (auto) 0.3 10 ^3/uL (0-1.3); Monocytes % (auto) 4.7 % (0.0-12.0); Neutrophils # (auto) 5.7 10 ^3/uL (1.6-8.6); Neutrophils % (auto) 83.2 % (37.0-80.0); Nucleated Red Blood Cells % 0.6 %; Platelet Count (auto) 41 10^3/uL (140-450); Red Blood Cells 3.73 10^6/uL (4.0-5.20); Red Cell Distribution Width 34.9 % (11.8-14.3); White Blood Cell 6.8 10^3/uL (4.4-10.8)
[2024-08-15 14:30] LABS: Hypochromia Moderate; Platelet Estimate Decreased; Target Cell MODERATE
[2024-08-15 14:31] LABS: Anisocytosis Marked
--- NOTE | 2024-08-15 14:58 | DVH ---
CT ABDOMEN AND PELVIS WITHOUT CONTRAST CLINICAL HISTORY: SUSPECTED SPLENIC SC CRISIS , ABDOMINAL PAIN TECHNIQUE: Multiple contiguous axial images of the abdomen and pelvis without intravenous contrast. The images were reformatted degenerate coronal and sagittal reconstructions. All CT scans at this medical facility are performed using dose modulation techniques as appropriate t o a performed exam including the following:Automated exposure control was utilized; adjustment of the MA and/or KV according to patient size; and use of iterative reconstruction technique. Radiation Dose Information: CT Dose: CTDI volume is 5 mGy. Dose-length product is 256 mGy*cm Comparison: None FINDINGS: Evaluation of the abdomen and pelvis is limited without intravenous contrast. The left kidney is asymmetrically larger than the right. There is left perinephric fat stranding. The re is no evidence of nephrolithiasis or hydronephrosis. There is no evidence of a ureteral calculus o r hydroureter. There is diffuse fatty infiltration of the liver. There is a 3.0 x 2.3 cm focal hypoattenuating area adjacent to the gallbladder. There is hyperdense sludge in the gallbladder. The pancreas, adrena l glands, and spleen appear within normal limits. There is no gross evidence of abdominal lymphadenopathy. There is no free fluid or free air. The stomach grossly appears unremarkable. The small and large bowel loops demonstrate normal caliber and appear within normal limits.. There is a normal-appearing appendix seen in the right lower quad rant abdomen. The abdominal aorta and IVC appear within normal limits. The bladder appears unremarkable for the degree of distention. Pelvic organ appears within normal mills its. There is no gross evidence of a pelvic mass. There is no free fluid collection. Lung bases are clear. There is no acute osseous abnormality. IMPRESSION: 1. The left kidney is asymmetrically larger than the right and there is left perinephric fat strandin g suggesting inflammation. There is no evidence of nephrolithiasis or hydronephrosis. Clinical correl ation for pyelonephritis is recommended. 2. Diffuse fatty infiltration of the liver. There is a 3.0 x 2.3 cm focal hypoattenuating area in th e liver adjacent to the gallbladder fossa. Hepatic lesion is not excluded. Further evaluation with ltiphase CT or MRI abdomen with contrast is recommended. 3. Hyperdense sludge in the gallbladder. HS:Y
[2024-08-15] MEDS: MAGNESIUM SULFATE 1GM/100ML 100 ML IV SCH (16:21)
[2024-08-15] MEDS: METOCLOPRAMIDE HCL 5MG/ml INJ 2ml VIAL IV PRN (16:22)
--- NOTE | 2024-08-15 16:33 | DVHCONRES ---
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 Vomiting episodes occur at least 50 times per day and are described as yellow, green, and sometimes clear. Left-sided abdominal pain and a burning sensation during urination started on Wednesday. The patient has not experienced fever or diarrhea and last had a bowel movement on . Unable to keep food or water down, the patient is experiencing dehydration and thirst. A history of two C-sections is noted, with the last one being 13 years ago, and the patient is currently menstruating. The patient takes folic acid and has no known allergies or other medical conditions. Past Medical History Sickle cell disease Past Surgical History 2 time Family History: Hypertension G8 MOTHER, Onset:Unknown Social History As per HPI Allergies: Coded Allergies: Hydrocodone (Verified Allergy, Mild, itchy hands, 12/05/23) Egg-derived Products (Verified Allergy, Unknown, 12/05/23) Pineapple (Verified Allergy, Unknown, 12/05/23) Home Meds Reported Medications Ibuprofen Micronized (Ibuprofen) 800 Mg Tab, 1 TAB PO Q8HPRN PRN 12/05/23 Amoxicillin Trihydrate (Amoxicillin) 500 Mg Cap, 1 CAP PO TID 12/05/23 Current Medications Current Medications Medications (Trade) Dose Ordered Sig/Jolie Route PRN Reason Start Time Stop Time Status Last Admin Ceftriaxone Sodium 50 ml @ 100 mls/hr DAILY@09 IV 08/15/24 09:00 08/15/24 09:45 Metronidazole 100 ml @ 100 mls/hr Q8HR IV 08/14/24 22:00 08/15/24 13:04 Ondansetron HCl (Zofran) 4 mg Q4HP PRN IV NAUSEA / VOMITING 08/14/24 18:45 08/15/24 09:45 Morphine Sulfate 2 mg Q4HPRN PRN IV SEVERE PAIN (7-10 PAIN SCALE) 08/14/24 18:45 08/15/24 09:47 Metoclopramide HCl (Reglan Injection) 5 mg Q6HPRN PRN IV NAUSEA / VOMITING 08/15/24 10:15 Dextrose/Sodium Chloride 1,000 ml @ 125 mls/hr Q8H IV 08/15/24 10:30 08/15/24 12:54 Hydroxyurea (Hydrea Capsule) 500 mg DAILY PO 08/16/24 10:00 Folic Acid 1 mg/ Dextrose 50.2 ml @ 200.8 mls/ hr DAILY INJ 08/16/24 10:00 Magnesium Sulfate/ Dextrose 100 ml @ 100 mls/hr Q1HR IV 08/15/24 15:00 08/15/24 16:59 Review of Systems ROS: gastrointestinal : admits to nausea and vomiting, admits to abdominal pain in the left upper and lower quadrant, denies diarrhea genitourinary : admits to burning sensation during urination, resolved musculoskeletal : admits to joint pain in legs, ankles, arms, and back Vital Signs Vital Signs Date Time Temp Pulse Resp B/P (MAP) Pulse Ox O2 Delivery O2 Flow Rate FiO2 08/15/24 12:57 98.5 101 17 138/92 (107) 98 98.5 08/15/24 08:00 Room Air* 0 21 Physical Exam General Appearance: Cooperative. Well developed. Well nourished. NAD Head Exam: Normal inspection Neck Exam: Normal inspection. Non-tender. Normal alignment Pulmonary/Respiratory: Chest non-tender. Clear bilateral breath sounds Cardiovascular/Chest: Regular rate and rhythm. No murmurs. No JVD. Peripheral Pulses: 2+ Radial (R). 2+ Radial (L). 2+ Pedal (R). 2+ Pedal (L) Abdominal Exam: Normal bowel sounds. Soft. Right upper quadrant tenderness on palpation, No hepatospenomegaly. No masses Ankle Exam: Negative ankle edema Lower extremities: Negative lower extremity edema Neuro/Mental Status: A&O x4. Coherent Thoughts/Psych: Normal thought pattern. Appropriate mood and affect. Good judgement and insight Appearance: In no acute distress Skin Exam: Normal inspection. Normal color. Warm. Dry Labs/Diagnostic Data Labs Test 08/15/24 13:00 08/15/24 12:52 08/15/24 06:49 08/14/24 10:29 Range/Units Urine Test Negative Negative White Blood Count 6.8 # 4.4-10.8 10^3/uL Red Blood Count 3.73 L 4.0-5.20 10^6/uL Hemoglobin 7.9 L 12.2-16.2 g/dL Hematocrit 24.6 L 36.0-46.0 % Mean Corpuscular Volume 65.8 L 80.0-100.0 fL Mean Corpuscular Hemoglobin 21.2 L 28.0-32.0 pg Mean Corpuscular Hemoglobin Concent 32.2 32.0-36.0 g/dL Red Cell Distribution Width 34.9 H 11.8-14.3 % Platelet Count 41 L 140-450 10^3/uL Mean Platelet Volume 8.1 6.9-10.8 fL Neutrophils (%) (Auto) 83.2 H 37.0-80.0 % Lymphocytes (%) (Auto) 11.8 10.0-50.0 % Monocytes (%) (Auto) 4.7 0.0-12.0 % Eosinophils (%) (Auto) 0.1 0.0-7.0 % Basophils (%) (Auto) 0.2 0.0-2.0 % Neutrophils # (Auto) 5.7 1.6-8.6 10 ^3/uL Lymphocytes # (Auto) 0.8 0.4-5.4 10 ^3/uL Monocytes # (Auto) 0.3 0-1.3 10 ^3/uL Eosinophils # (Auto) 0 0-0.8 10 ^3/uL Basophils # (Auto) 0 0-0.2 10 ^3/uL Nucleated Red Blood Cells 0.6 % Platelet Estimate Decreased Hypochromasia (manual) Moderate Anisocytosis (manual) Marked Microcytosis Marked Target Cells Moderate Lactic Acid Level 0.8 0.4-2.0 mmol/L Poikilocytosis (manual) Marked Tear Drop Cells Few Sodium Level 136 136-145 mmol/L Potassium Level 3.3 L 3.5-5.1 mmol/L Chloride Level 101 98-107 mmol/L Carbon Dioxide Level 24 20-31 mmol/L Anion Gap 11 5-15 Blood Urea Nitrogen 8 L 9-23 mg/dL Creatinine 0.97 # 0.550-1.02 mg/dL Glomerular Filtration Rate Calc 79 >90 mL/min BUN/Creatinine Ratio 8.2 L 10.0-20.0 Serum Glucose 92 74-106 mg/dL Calcium Level 8.3 L 8.7-10.4 mg/dL Magnesium Level 1.3 L 1.6-2.6 mg/dL Total Bilirubin 1.8 H 0.2-1.0 mg/dL Aspartate Amino Transferase (AST) 78 H 13-40 U/L Alanine Aminotransferase (ALT) 58 H 7-40 U/L Alkaline Phosphatase 49 46-116 U/L Total Protein 5.5 L 5.7-8.2 g/dL Albumin 3.2 3.2-4.8 g/dL Lipase 36 12-53 U/L Test 08/14/24 09:29 Range/Units Urine Color Yellow Yellow Urine Clarity Clear Clear Urine pH 7.0 5.0-9.0 Urine Specific [place] 1.018 1.001-1.035 Urine Protein 3+ H Negative Urine Ketones 1+ H Negative Urine Blood 1+ H Negative /uL Urine Nitrite Negative Negative Urine Bilirubin 1+ H Negative Urine Urobilinogen 4 H Negative mg/dL Urine Leukocyte Esterase Negative Negative /uL Urine RBC 2 0 - 4 /hpf Urine Microscopic WBC 9 H 0-5 /HPF Urine Squamous Epithelial Cells Few <5 /hpf Urine Bacteria Few H None Seen /hpf Urine Glucose Trace Normal mg/dL Assessment Abdominal pain Rule out acute cholecystitis ? Sickle cell crisis ? Sickle cell sequestration Microcytic anemia ? Hemolysis Elevated bilirubin and transaminitis Plan/recommendation Dr. Robins -ordered HIDA scan rule out acute cholecystitis. Reviewed MRCP and gallbladder ultrasound. Gallbladder sludge present, mild pericholecystic edema. -continue with IV hydration and pain management for possible sickle crisis. -IV antibiotic with ceftriaxone and metronidazole. -low hemoglobin with possible hemolysis, follow with reticulocyte count, haptoglobin, LDH level and peripheral smear if necessary. -pending acute hepatitis panel. -NPO -symptomatic control with ondansetron and metoclopramide for nausea and vomiting. -rest of the management per hospitalist team. -we will continue following up. We will stand by for GI procedure if needed. Plan discussed with: Patient, Other (RN) VANNESSA CHAN RESIDENT Aug 15, 2024 16:33
--- NOTE | 2024-08-15 17:28 | DVHPNRES ---
Progress Note Date Seen: Aug 15, 2024 Resident Creating Document: DARIANA PIPER RESIDENT Medical Necessity Reason Pt with a Central, PICC or Fol: No (RN) Subjective Review of Systems Patient is 33 years old female with past medical history of sickle cell disease and sickle cell crisis came with a complaint of left abdominal pain. As per patient patient started having abdominal pain on Wednesday, sudden onset, 10/10, sharp in nature, no aggravating or relieving factor, no radiation. Pain was associated with nausea and vomiting for several times which content clear liquid fluid, no blood. Endorsed some chills but no fever or dysuria. Patient denied any shortness of breaths, chest pain, acute dysarthria or change in vision, acute leg swelling or joint swelling. Initial lab workup revealed leukocytosis WBC 19.6, hemoglobin 11.3, platelets 93, sodium 135, potassium 3.3, serum creatinine 1.54, total bilirubin 2.8, AST 116, ALT 113, magnesium 1.3. CT abdomen and pelvis revealed- The left kidney is asymmetrically larger than the right and there is left perinephric fat stranding suggesting inflammation. There is no evidence of nephrolithiasis or hydronephrosis. Clinical correlation for pyelonephritis is recommended. Diffuse fatty infiltration of the liver. There is a 3.0 x 2.3 cm focal hypoattenuating area in the liver adjacent to the gallbladder fossa. Hepatic lesion is not excluded. Further evaluation with multiphase CT or MRI abdomen with contrast is recommended. Hyperdense sludge in the gallbladder. Ultrasound of the gallbladder revealed-Sludge in the gallbladder. No biliary dilatation. Fatty liver. MRCP revealed-Gallbladder sludge is present.Mild pericholecystic edema. No intra or extrahepatic biliary duct dilation. PMH-sickle cell disease PSH- tonsillectomy, serum section x2 Allergy- egg derived products, hydrocodone, pineapple Personal History/ Social History- lives with family, alcoholic, has been having, Patient was seen today at the bedside. Patient Cardiovascular- deny acute chest pain or shortness of breath or cough or palpitation Respiratory denies cough or short of breath or wheezing Gastrointestinal- complains of abdominal pain Musculoskeletal-denies acute joint swelling or tenderness or redness Neurological- denies acute dysarthria, dysphagia, change in vision Psychiatry- denies depression or SI or HI Skin- denies acute rash or purpura Patient was seen today for clinical evaluation. Labs and chart reviewed. Hemoglobin was trending down from 11.3> 7.8> 8.5> 7.9. Hypokalemia was replenished, potassium 3.3. KITTY improved with serum creatinine 1.54> 0.79. Patient reported abdominal pain on the left side. Left-sided abdominal tenderness positive.CT abdomen and pelvis revealed- The left kidney is asymmetrically larger than the right and there is left perinephric fat stranding suggesting inflammation. There is no evidence of nephrolithiasis or hydronephrosis. Clinical correlation for pyelonephritis is recommended. Diffuse fatty infiltration of the liver. There is a 3.0 x 2.3 cm focal hypoattenuating area in the liver adjacent to the gallbladder fossa. Hepatic lesion is not excluded. Further evaluation with multiphase CT or MRI abdomen with contrast is recommended. Hyperdense sludge in the gallbladder. Ultrasound of the gallbladder revealed-Sludge in the gallbladder. No biliary dilatation. Fatty liver. MRCP revealed-Gallbladder sludge is present.Mild pericholecystic edema. No intra or extrahepatic biliary duct dilation. Patient was seen by Gastroenterology, recommendation reviewed and appreciated. Objective vital signs Vital Sign Date Time Temp Pulse Resp B/P (MAP) Pulse Ox O2 Delivery O2 Flow Rate FiO2 08/15/24 12:57 98.5 101 17 138/92 (107) 98 98.5 08/15/24 08:00 Room Air* 0 21 Total Intake and Output 08/14/24 08/14/24 08/15/24 15:00 23:00 07:00 Intake Total 200 ml Balance 200 ml medications Current Medications Medications Dose Ordered Sig/Jolie Route Start Time Stop Time Status Last Admin Dose Admin Ceftriaxone Sodium 50 ml @ 100 mls/hr DAILY@09 IV 08/15/24 09:00 08/15/24 09:45 100 MLS/HR Metronidazole 100 ml @ 100 mls/hr Q8HR IV 08/14/24 22:00 08/15/24 13:04 100 MLS/HR Ondansetron HCl 4 mg Q4HP PRN IV 08/14/24 18:45 08/15/24 09:45 4 MG Morphine Sulfate 2 mg Q4HPRN PRN IV 08/14/24 18:45 08/15/24 09:47 2 MG Metoclopramide HCl 5 mg Q6HPRN PRN IV 08/15/24 10:15 08/15/24 16:22 5 MG Dextrose/Sodium Chloride 1,000 ml @ 125 mls/hr Q8H IV 08/15/24 10:30 08/15/24 12:54 125 MLS/HR Hydroxyurea 500 mg DAILY PO 08/16/24 10:00 Folic Acid 1 mg/ Dextrose 50.2 ml @ 200.8 mls/ hr DAILY INJ 08/16/24 10:00 Examination General examination- , alert, oriented, conversant HEENT- PEERLA, no acute nasal discharge Cardiovascular- S1-S2 audible, rate and rhythm regular, no murmur Respiratory- CTAB, no wheeze or rhonchi Gastrointestinal-abdominal tenderness++, ++ bowel sounds present Musculoskeletal-no acute joint swelling or tenderness or redness# Lower extremity- no leg edema Neurological- cranial nerves intact, no acute dysarthria or dysphagia Psychiatry- denies depression or SI or HI Skin- no acute rash or purpura laboratory and microbiology Laboratory Tests 08/15/24 12:52 08/15/24 06:49 Test 08/15/24 06:49 Range/Units Serum Glucose 92 74-106 mg/dL Problem List/Assessment/Plan Problem List/Assessment/Plan Assessment Sickle cell crisis Suspected mesenteric ischemia from sickle cell crisis Suspected Cholecystitis Transaminitis Hypokalemia Moderate anemia KITTY likely due to VMN/hemodynamic impairment Plan- Continue ceftriaxone 1 g IV daily Continue metronidazole 500 mg t.i.d. Continue D5 with .9% NaCl rate of 125 mL/hour Continue folic acid as prescribed Continue hydroxyurea 5 mg p.o. daily Pending HIDA scan Continue pain management as prescribed Monitor vitals Goals of care/advance care planning; FULL CODE; discussed with the patient >15 minutes PUD prophylaxis: Famotidine DVT prophylaxis: Plan discussed with Dr. Bolivar , nursing staff, patient Total time spent on patient evaluation, chart review, assessment and plan, discussion discussion >41 minutes Plan discussed with: Patient Plan discussed with: Patient, Other (RN) My Orders My Orders Orders - DARIANA PIPER RESIDENT Procedure Category Date Status Time Metoclopramide PHA 08/15/24 In Process Injection (Reglan 10:15 D5w/Sod Chlo 0.9% PHA 08/15/24 In Process (D5w Ns 0.9%) 10:30 Urine ED NURSING 08/15/24 Transmitted Lactate Dehydrogenase LAB 08/15/24 In Process 12:02 Haptoglobin LAB 08/15/24 In Process 12:02 Hydroxyurea Capsule PHA 08/16/24 In Process (Hydrea Capsule) 10:00 Folic Acid PHA 08/16/24 In Process 10:00 Ct Ab Pel Wo Con-No CT 08/15/24 Resulted Oral Or Iv 12:20 DARIANA PIPER RESIDENT Aug 15, 2024 17:28
[2024-08-15] MEDS: FOLIC ACID 1 MG in D5W 5% 50 ML INJ ONE (17:48)
--- NOTE | 2024-08-15 20:28 | DVH ---
Procedure: NM NM HIDA SCAN Exam Date: 08/15/2024 06:45 PM Clinical History: ruq pain, elevated liver enzymes, gall bladder sludge Comparison Study: None Nuclear Medicine Hepatobiliary Scan. Technique: Following the intravenous administration of 5.5 mCi of technetium 99m labeled Choletec multiple plana r abdominal planar images were obtained in anterior projection in 5 minute intervals for 60 minutes . Right lateral images were obtained at 65 minutes after injection. Findings: The liver appears grossly normal in size. There is no abnormal persistence of the cardiac or blood po ol activity. There is prompt visualization of the gallbladder and excretion of activity into the smal l bowel. Impression: Unremarkable hepatobiliary study without evidence of acute cholecystitis.
[2024-08-15] MEDS: FAMOTIDINE (10MG/ML) 2ML VL IV SCH (21:57)
[2024-08-16] VITALS (7 sets, daily range): BP systolic 122–149; BP diastolic 84–104; PULSE 86–96; RESP 16–19; TEMP 97.9–99.4; O2SAT 98–99
[2024-08-16 07:54] LABS: Basophils # (auto) 0 10 ^3/uL (0-0.2); Eosinophils # (auto) 0 10 ^3/uL (0-0.8); Eosinophils % (auto) 0.8 % (0.0-7.0)
[2024-08-16 07:55] LABS: Basophils % (auto) 0.6 % (0.0-2.0); Hematocrit 24.5 % (36.0-46.0); Hemoglobin 8.1 g/dL (12.2-16.2); Lymphocytes # (auto) 0.9 10 ^3/uL (0.4-5.4); Lymphocytes % (auto) 19.4 % (10.0-50.0); Mean Corpuscular Hemoglobin 21.9 pg (28.0-32.0); Mean Corpuscular Hgb Conc. 33.1 g/dL (32.0-36.0); Mean Corpuscular Volume 66.1 fL (80.0-100.0); Monocytes # (auto) 0.3 10 ^3/uL (0-1.3); Monocytes % (auto) 6.8 % (0.0-12.0); Neutrophils # (auto) 3.4 10 ^3/uL (1.6-8.6); Neutrophils % (auto) 72.4 % (37.0-80.0); Nucleated Red Blood Cells % 0.3 %; Platelet Count (auto) 55 10^3/uL (140-450); Red Blood Cells 3.71 10^6/uL (4.0-5.20); White Blood Cell 4.7 10^3/uL (4.4-10.8)
[2024-08-16 09:15] LABS: Anion Gap 8 (5-15); Carbon Dioxide 26 mmol/L (20-31); Chloride 102 mmol/L (98-107)
[2024-08-16 09:16] LABS: Alanine Aminotransferase 56 U/L (7-40); Alkaline Phosphatase 45 U/L (46-116); Calcium 8.6 mg/dL (8.7-10.4); Glucose 119 mg/dL (74-106); Potassium 3.4 mmol/L (3.5-5.1); Sodium 136 mmol/L (136-145)
[2024-08-16 09:17] LABS: Aspartate Aminotransferase 82 U/L (13-40); BUN/Creatinine Ratio 5.7 (10.0-20.0); Blood Urea Nitrogen < 5 mg/dL (9-23)
[2024-08-16 09:18] LABS: Albumin 3.3 g/dL (3.2-4.8)
[2024-08-16 09:19] LABS: Total Protein 5.8 g/dL (5.7-8.2)
[2024-08-16 09:20] LABS: Bilirubin, Total 1.3 mg/dL (0.2-1.0)
[2024-08-16 09:41] LABS: Platelet Estimate Decreased; Target Cell MODERATE
[2024-08-16 09:42] LABS: Anisocytosis Marked; Hypochromia Moderate
[2024-08-16] MEDS: hydroxyUREA 500 MG CAP PO SCH (09:49)
[2024-08-16] MEDS: FOLIC ACID 1 MG in D5W 5% 50 ML INJ SCH (09:50)
--- NOTE | 2024-08-16 11:07 | DVHPNRES ---
Progress Note Date Seen: Aug 16, 2024 Resident Creating Document: VANNESSA CHAN RESIDENT Medical Necessity Reason Pt with a Central, PICC or Fol: No (RN) Subjective Review of Systems Patient seen and examined at bedside. Patient nausea and vomiting significantly improved Patient abdominal pain also significantly improved, n Liver enzymes trending down/not up trending, still hemoglobin is low. Objective vital signs Vital Sign Date Time Temp Pulse Resp B/P (MAP) Pulse Ox O2 Delivery O2 Flow Rate FiO2 08/16/24 08:44 97.9 86 16 149/102 (118) 98 97.9 08/15/24 20:00 Room Air* 0 21 Total Intake and Output 08/15/24 08/15/24 08/16/24 15:00 23:00 07:00 Intake Total 50 ml 600 ml 100 ml Output Total 900 ml 650 ml Balance 50 ml -300 ml -550 ml medications Current Medications Medications Dose Ordered Sig/Jolie Route Start Time Stop Time Status Last Admin Dose Admin Ceftriaxone Sodium 50 ml @ 100 mls/hr DAILY@09 IV 08/15/24 09:00 Hold 08/15/24 09:45 100 MLS/HR Metronidazole 100 ml @ 100 mls/hr Q8HR IV 08/14/24 22:00 Hold 08/16/24 04:55 100 MLS/HR Ondansetron HCl 4 mg Q4HP PRN IV 08/14/24 18:45 08/16/24 04:55 4 MG Morphine Sulfate 2 mg Q4HPRN PRN IV 08/14/24 18:45 08/16/24 02:11 2 MG Metoclopramide HCl 5 mg Q6HPRN PRN IV 08/15/24 10:15 08/16/24 09:49 5 MG Dextrose/Sodium Chloride 1,000 ml @ 125 mls/hr Q8H IV 08/15/24 10:30 08/15/24 17:50 125 MLS/HR Hydroxyurea 500 mg DAILY PO 08/16/24 10:00 08/16/24 09:49 500 MG Folic Acid 1 mg/ Dextrose 50.2 ml @ 200.8 mls/ hr DAILY INJ 08/16/24 10:00 08/16/24 09:50 200.8 MLS/HR Famotidine 20 mg Q12HR IV 08/15/24 22:00 08/16/24 09:49 20 MG Examination General Appearance: Cooperative. Well developed. Well nourished. NAD Head Exam: Normal inspection Neck Exam: Normal inspection. Non-tender. Normal alignment Pulmonary/Respiratory: Chest non-tender. Clear bilateral breath sounds Cardiovascular/Chest: Regular rate and rhythm. No murmurs. No JVD. Peripheral Pulses: 2+ Radial (R). 2+ Radial (L). 2+ Pedal (R). 2+ Pedal (L) Abdominal Exam: Normal bowel sounds. Soft. Right upper quadrant tenderness on palpation, No hepatospenomegaly. No masses Ankle Exam: Negative ankle edema Lower extremities: Negative lower extremity edema Neuro/Mental Status: A&O x4. Coherent Thoughts/Psych: Normal thought pattern. Appropriate mood and affect. Good judgement and insight Appearance: In no acute distress Skin Exam: Normal inspection. Normal color. Warm. Dry laboratory and microbiology Laboratory Tests 08/16/24 07:11 Test 08/16/24 07:11 Range/Units Serum Glucose 119 H 74-106 mg/dL Problem List/Assessment/Plan Problem List/Assessment/Plan Abdominal pain likely related sickle cell crisis Ruled out acute cholecystitis ? Sickle cell crisis ? Sickle cell sequestration Microcytic anemia ? Hemolysis Elevated bilirubin and transaminitis Plan/recommendation Dr. Robins -HIDEduar scan ruled out acute cholecystitis, MRCP did not show any lesion or mass. Significantly improved symptoms with IV hydration pain management likely elevated liver enzymes related to sickle cell crisis. -follow up in GI clinic for further evaluation management of elevated liver enzymes, can follow with CEA, ferritin, AFP, JAIRON. -continue with IV hydration and pain management for possible sickle crisis. -acute hepatitis panel pending. -symptomatic control with ondansetron and metoclopramide for nausea and vomiting. -rest of the management per hospitalist team. -no need for any acute GI intervention at this point. Plan discussed with: Patient, Other (RN) VANNESSA CHAN RESIDENT Aug 16, 2024 11:07
--- NOTE | 2024-08-16 16:43 | DVHPNRES ---
Progress Note Date Seen: Aug 16, 2024 Resident Creating Document: DARIANA PIPER RESIDENT Medical Necessity Reason Pt with a Central, PICC or Fol: No (RN) Subjective Review of Systems Patient is 33 years old female with past medical history of sickle cell disease and sickle cell crisis came with a complaint of left abdominal pain. As per patient patient started having abdominal pain on Wednesday, sudden onset, 10/10, sharp in nature, no aggravating or relieving factor, no radiation. Pain was associated with nausea and vomiting for several times which content clear liquid fluid, no blood. Endorsed some chills but no fever or dysuria. Patient denied any shortness of breaths, chest pain, acute dysarthria or change in vision, acute leg swelling or joint swelling. Initial lab workup revealed leukocytosis WBC 19.6, hemoglobin 11.3, platelets 93, sodium 135, potassium 3.3, serum creatinine 1.54, total bilirubin 2.8, AST 116, ALT 113, magnesium 1.3. CT abdomen and pelvis revealed- The left kidney is asymmetrically larger than the right and there is left perinephric fat stranding suggesting inflammation. There is no evidence of nephrolithiasis or hydronephrosis. Clinical correlation for pyelonephritis is recommended. Diffuse fatty infiltration of the liver. There is a 3.0 x 2.3 cm focal hypoattenuating area in the liver adjacent to the gallbladder fossa. Hepatic lesion is not excluded. Further evaluation with multiphase CT or MRI abdomen with contrast is recommended. Hyperdense sludge in the gallbladder. Ultrasound of the gallbladder revealed-Sludge in the gallbladder. No biliary dilatation. Fatty liver. MRCP revealed-Gallbladder sludge is present.Mild pericholecystic edema. No intra or extrahepatic biliary duct dilation. HIDA scan negative for acute cholecystitis. PMH-sickle cell disease PSH- tonsillectomy, serum section x2 Allergy- egg derived products, hydrocodone, pineapple Personal History/ Social History- lives with family, alcoholic, has been having, Patient was seen today at the bedside. Patient Cardiovascular- deny acute chest pain or shortness of breath or cough or palpitation Respiratory denies cough or short of breath or wheezing Gastrointestinal- complains of abdominal pain Musculoskeletal-denies acute joint swelling or tenderness or redness Neurological- denies acute dysarthria, dysphagia, change in vision Psychiatry- denies depression or SI or HI Skin- denies acute rash or purpura Patient was seen today for clinical evaluation. Labs and chart reviewed. Patient reported feeling better today in the morning, complained of pain of the abdomen 5/5. Patient was put on clear liquid to liquid diet. Patient reported abdominal pain 7/10 following liquid diet. And also nausea. Patient is on IV fluid. No acute fever. Abdomen is mildly tender. HIDA scan negative for acute cholecystitis. Patient was seen by Gastroenterology, recommendation reviewed and appreciated. Objective vital signs Vital Sign Date Time Temp Pulse Resp B/P (MAP) Pulse Ox O2 Delivery O2 Flow Rate FiO2 08/16/24 15:49 96 16 139/96 08/16/24 13:00 98.4 99 98.4 08/16/24 08:15 Room Air* 0 21 Total Intake and Output 08/15/24 08/15/24 08/16/24 15:00 23:00 07:00 Intake Total 50 ml 600 ml 100 ml Output Total 900 ml 650 ml Balance 50 ml -300 ml -550 ml medications Current Medications Medications Dose Ordered Sig/Jolie Route Start Time Stop Time Status Last Admin Dose Admin Ceftriaxone Sodium 50 ml @ 100 mls/hr DAILY@09 IV 08/15/24 09:00 Hold 08/15/24 09:45 100 MLS/HR Metronidazole 100 ml @ 100 mls/hr Q8HR IV 08/14/24 22:00 Hold 08/16/24 04:55 100 MLS/HR Ondansetron HCl 4 mg Q4HP PRN IV 08/14/24 18:45 08/16/24 15:48 4 MG Morphine Sulfate 2 mg Q4HPRN PRN IV 08/14/24 18:45 08/16/24 15:49 2 MG Metoclopramide HCl 5 mg Q6HPRN PRN IV 08/15/24 10:15 08/16/24 09:49 5 MG Dextrose/Sodium Chloride 1,000 ml @ 125 mls/hr Q8H IV 08/15/24 10:30 08/16/24 15:49 125 MLS/HR Hydroxyurea 500 mg DAILY PO 08/16/24 10:00 08/16/24 09:49 500 MG Folic Acid 1 mg/ Dextrose 50.2 ml @ 200.8 mls/ hr DAILY INJ 08/16/24 10:00 08/16/24 09:50 200.8 MLS/HR Famotidine 20 mg Q12HR IV 08/15/24 22:00 08/16/24 09:49 20 MG Examination General examination- , alert, oriented, conversant HEENT- PEERLA, no acute nasal discharge Cardiovascular- S1-S2 audible, rate and rhythm regular, no murmur Respiratory- CTAB, no wheeze or rhonchi Gastrointestinal-abdominal tenderness+, ++ bowel sounds present Musculoskeletal-no acute joint swelling or tenderness or redness# Lower extremity- no leg edema Neurological- cranial nerves intact, no acute dysarthria or dysphagia Psychiatry- denies depression or SI or HI Skin- no acute rash or purpura laboratory and microbiology Laboratory Tests 08/16/24 07:11 Test 08/16/24 07:11 Range/Units Serum Glucose 119 H 74-106 mg/dL Problem List/Assessment/Plan Problem List/Assessment/Plan Assessment Sickle cell crisis Suspected mesenteric ischemia from sickle cell crisis SIRS likely due to sickle cell crisis Acute Cholecystitis ruled out Transaminitis likely due to sickle-cell crisis Hypokalemia Moderate anemia Thrombocytopenia and anemia likely due to nonsignificant splenic sequestration from sickle cell crisis KITTY likely due to VMN/hemodynamic impairment Plan-status post gastroenterology consult Continue ceftriaxone 1 g IV daily Continue metronidazole 500 mg t.i.d. Continue D5 with .9% NaCl rate of 125 mL/hour Continue folic acid as prescribed Continue hydroxyurea 5 mg p.o. daily Continue pain management as prescribed Monitor vitals -patient was advised to maintain liquid diet for next 2 weeks until pain subsides totally -patient was advised to follow up with the content curator for further evaluation and care of sickle cell anemia -plan is to continue folic acid and hydroxyurea on discharge -avoid dehydration and infection Goals of care/advance care planning; FULL CODE; discussed with the patient >15 minutes PUD prophylaxis: Famotidine DVT prophylaxis: Plan discussed with Dr. Bolivar , nursing staff, patient Total time spent on patient evaluation, chart review, assessment and plan, discussion discussion >31 minutes Plan discussed with: Patient Plan discussed with: Patient (RN), Other (RN) My Orders My Orders Orders - DARIANA PIPER Procedure Category Date Status Time Famotidine Injection PHA 08/15/24 In Process (Pepcid Injection) 22:00 Full Liq Diet DIET 08/16/24 Transmitted Lunch DARIANA PIPER Aug 16, 2024 16:43
[2024-08-17 01:00] VITALS: BP 125/87; PULSE 80; RESP 18; TEMP 98.4; O2SAT 100
[2024-08-17 05:00] VITALS: BP 129/92; PULSE 77; RESP 18; TEMP 98.7; O2SAT 100
[2024-08-17 07:33] LABS: Hematocrit 22.7 % (36.0-46.0); White Blood Cell 4.1 10^3/uL (4.4-10.8)
[2024-08-17 07:36] LABS: Hemoglobin 7.7 g/dL (12.2-16.2); Mean Corpuscular Hemoglobin 22.3 pg (28.0-32.0); Mean Corpuscular Volume 65.7 fL (80.0-100.0); Platelet Count (auto) 51 10^3/uL (140-450); Red Blood Cells 3.46 10^6/uL (4.0-5.20); Red Cell Distribution Width 37.1 % (11.8-14.3)
[2024-08-17 07:42] LABS: Basophils % (manual) 0 (0.0-2.0); Blast Cells 0; Eosinophils % (manual) 0 (0-7); Metamyelocytes % 0; Myelocytes % 0; Promyelocytes % 0; Reactive Lymphocytes 0
[2024-08-17 07:53] LABS: Alanine Aminotransferase 50 U/L (7-40); Albumin 3.3 g/dL (3.2-4.8); Alkaline Phosphatase 44 U/L (46-116); Anion Gap 9 (5-15); Aspartate Aminotransferase 57 U/L (13-40); Calcium 8.7 mg/dL (8.7-10.4); Carbon Dioxide 26 mmol/L (20-31); Chloride 99 mmol/L (98-107); Glucose 109 mg/dL (74-106); Magnesium 1.7 mg/dL (1.6-2.6); Potassium 2.9 mmol/L (3.5-5.1); Sodium 134 mmol/L (136-145)
[2024-08-17 07:56] LABS: BUN/Creatinine Ratio 6.8 (10.0-20.0); Blood Urea Nitrogen < 5 mg/dL (9-23)
[2024-08-17 08:00] LABS: Total Protein 5.7 g/dL (5.7-8.2)
[2024-08-17 08:15] LABS: Anisocytosis Marked; Band Neutrophils % (manual) 3; Hypochromia Moderate; Lymphocytes % (manual) 22 (10.0-50.0); Monocytes % (manual) 5 (0-12); Target Cell MODERATE
[2024-08-17 08:16] LABS: Platelet Estimate Decreased
[2024-08-17 08:44] VITALS: BP 152/107; PULSE 70; RESP 16; TEMP 98.1; O2SAT 99
[2024-08-17 10:01] LABS: Bilirubin, Total 1.3 mg/dL (0.2-1.0)
--- NOTE | 2024-08-17 10:01 | DVHDSRES ---
Discharge Summary Date of Admission Resident Creating Document: DARIANA PIPER Aug 14, 2024 at 18:40 Date of Discharge: Aug 17, 2024 Labs/Diagnostic Data: Laboratory Results Test 08/17/24 07:12 08/16/24 07:11 08/15/24 13:00 08/15/24 12:52 White Blood Count 4.1 10^3/uL (4.4-10.8) Red Blood Count 3.46 10^6/uL (4.0-5.20) Hemoglobin 7.7 g/dL (12.2-16.2) Hematocrit 22.7 % (36.0-46.0) Mean Corpuscular Volume 65.7 fL (80.0-100.0) Mean Corpuscular Hemoglobin 22.3 pg (28.0-32.0) Mean Corpuscular Hemoglobin Concent 34.0 g/dL (32.0-36.0) Red Cell Distribution Width 37.1 % (11.8-14.3) Platelet Count 51 10^3/uL (140-450) Mean Platelet Volume 8.4 fL (6.9-10.8) Neutrophils (%) (Auto) % (37.0-80.0) Lymphocytes (%) (Auto) % (10.0-50.0) Monocytes (%) (Auto) % (0.0-12.0) Basophils (%) (Auto) % (0.0-2.0) Neutrophils # (Auto) 10 ^3/uL (1.6-8.6) Lymphocytes # (Auto) 10 ^3/uL (0.4-5.4) Monocytes # (Auto) 10 ^3/uL (0-1.3) Differential Total Cells Counted 100.0 (100) Neutrophils % (Manual) 70 (37.0-80.0) Band Neutrophils % (Manual) 3 Lymphocytes % (Manual) 22 (10.0-50.0) Monocytes % (Manual) 5 (0-12) Eosinophils % (Manual) 0 (0-7) Basophils % (Manual) 0 (0.0-2.0) Metamyelocytes % (manual) 0 Myelocytes % (Manual) 0 Promyelocytes % (Manual) 0 Blast Cells % (Manual) 0 Reactive Lymphocytes 0 Platelet Estimate Decreased Hypochromasia (manual) Moderate Anisocytosis (manual) Marked Microcytosis Marked Target Cells Moderate Sodium Level 134 mmol/L (136-145) Potassium Level 2.9 mmol/L (3.5-5.1) Chloride Level 99 mmol/L (98-107) Carbon Dioxide Level 26 mmol/L (20-31) Anion Gap 9 (5-15) Blood Urea Nitrogen < 5 mg/dL (9-23) Creatinine 0.74 mg/dL (0.550-1.02) Glomerular Filtration Rate Calc 109 mL/min (>90) BUN/Creatinine Ratio 6.8 (10.0-20.0) Serum Glucose 109 mg/dL (74-106) Calcium Level 8.7 mg/dL (8.7-10.4) Magnesium Level 1.7 mg/dL (1.6-2.6) Aspartate Amino Transferase (AST) 57 U/L (13-40) Alanine Aminotransferase (ALT) 50 U/L (7-40) Alkaline Phosphatase 44 U/L (46-116) Total Protein 5.7 g/dL (5.7-8.2) Albumin 3.3 g/dL (3.2-4.8) Eosinophils (%) (Auto) 0.8 % (0.0-7.0) Eosinophils # (Auto) 0 10 ^3/uL (0-0.8) Basophils # (Auto) 0 10 ^3/uL (0-0.2) Nucleated Red Blood Cells 0.3 % Urine Test Negative (Negative) Reticulocyte Count (auto) 3.19 % (0.5-1.5) Haptoglobin 81 mg/dL (33-278) Lactic Acid Level 0.8 mmol/L (0.4-2.0) Test 08/15/24 06:49 08/14/24 10:29 08/14/24 09:29 Poikilocytosis (manual) Marked Tear Drop Cells Few Lactate Dehydrogenase 335 U/L (120-246) Lipase 36 U/L (12-53) Urine Color Yellow (Yellow) Urine Clarity Clear (Clear) Urine pH 7.0 (5.0-9.0) Urine Specific [place] 1.018 (1.001-1.035) Urine Protein 3+ (Negative) Urine Ketones 1+ (Negative) Urine Blood 1+ /uL (Negative) Urine Nitrite Negative (Negative) Urine Bilirubin 1+ (Negative) Urine Urobilinogen 4 mg/dL (Negative) Urine Leukocyte Esterase Negative /uL (Negative) Urine RBC 2 /hpf (0 - 4) Urine Microscopic WBC 9 /HPF (0-5) Urine Squamous Epithelial Cells Few /hpf (<5) Urine Bacteria Few /hpf (None Seen) Urine Glucose Trace mg/dL (Normal) Other Laboratory Tests 08/17/24 07:12 Brief Hx & Hospital Course: Patient is 33 years old female with past medical history of sickle cell disease and sickle cell crisis came with a complaint of left abdominal pain. As per patient patient started having abdominal pain on Wednesday, sudden onset, 04/13, sharp in nature, no aggravating or relieving factor, no radiation. Pain was associated with nausea and vomiting for several times which content clear liquid fluid, no blood. Endorsed some chills but no fever or dysuria. Patient denied any shortness of breaths, chest pain, acute dysarthria or change in vision, acute leg swelling or joint swelling. Initial lab workup revealed leukocytosis WBC 19.6, hemoglobin 11.3, platelets 93, sodium 135, potassium 3.3, serum creatinine 1.54, total bilirubin 2.8, AST 116, ALT 113, magnesium 1.3. CT abdomen and pelvis revealed- The left kidney is asymmetrically larger than the right and there is left perinephric fat stranding suggesting inflammation. There is no evidence of nephrolithiasis or hydronephrosis. Clinical correlation for pyelonephritis is recommended. Diffuse fatty infiltration of the liver. There is a 3.0 x 2.3 cm focal hypoattenuating area in the liver adjacent to the gallbladder fossa. Hepatic lesion is not excluded. Further evaluation with multiphase CT or MRI abdomen with contrast is recommended. Hyperdense sludge in the gallbladder. Ultrasound of the gallbladder revealed-Sludge in the gallbladder. No biliary dilatation. Fatty liver. MRCP revealed-Gallbladder sludge is present.Mild pericholecystic edema. No intra or extrahepatic biliary duct dilation. HIDA scan negative for acute cholecystitis. Hospital course-came to the hospital due to abdominal pain and nausea and vomiting. Patient was admitted hospital due to acute sickle cell crisis.Initial lab workup revealed leukocytosis WBC 19.6, hemoglobin 11.3, platelets 93, sodium 135, potassium 3.3, serum creatinine 1.54, total bilirubin 2.8, AST 116, ALT 113, magnesium 1.3. CT abdomen and pelvis revealed- The left kidney is asymmetrically larger than the right and there is left perinephric fat stranding suggesting inflammation. There is no evidence of nephrolithiasis or hydronephrosis. Clinical correlation for pyelonephritis is recommended. Diffuse fatty infiltration of the liver. There is a 3.0 x 2.3 cm focal hypoattenuating area in the liver adjacent to the gallbladder fossa. Hepatic lesion is not excluded. Further evaluation with multiphase CT or MRI abdomen with contrast is recommended. Hyperdense sludge in the gallbladder. Ultrasound of the gallbladder revealed-Sludge in the gallbladder. No biliary dilatation. Fatty liver. MRCP revealed-Gallbladder sludge is present.Mild pericholecystic edema. No intra or extrahepatic biliary duct dilation. HIDA scan negative for acute cholecystitis. Gastroenterology consultation was done. Acute cholecystitis was ruled out. Patient's symptom improved with conservative management. Patient was advised to continue liquid diet for next 2 weeks until pain and nausea and vomiting completely subsides. Patient was advised to follow up with the primary care physician in 1 week. Patient was also advised to follow up with marketing strategist for further evaluation and care of sickle cell anemia and thrombocytopenia and anemia. Patient verbalized understanding. Patient was discharged with the folic acid and hydroxyurea and pain medicine. Patient's med were sent to the pharmacy electronically. Patient was hemodynamically stable on discharge. 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 daily -please follow up with the primary care physician in 1 week -please repeat labs CBC, BNP with primary care physician in the coming up follow up -please follow up with the marketing strategist for further evaluation and care of sickle cell anemia and further evaluation of thrombocytopenia and anemia -patient was advised to maintain liquid diet for next 2 weeks until pain subsides totally -patient was advised to follow up with the marketing strategist for further evaluation and care of sickle cell anemia -plan is to continue folic acid and hydroxyurea -avoid dehydration and infection Operations or Procedures [address] [address] Ph: [phone] DIAGNOSTIC IMAGING Diagnostic Imaging Report : [id number] Signed PATIENT: ADRIAN PALOMAREST: [id number] UNIT: [id number] : 1990 LOC: ER ROOM / BED: / AGE / SEX: 33 / F ADM STATUS: REG ER SERVICE 1404 ORDERING PHYSICIAN: BRANDI WALKER MD PROCEDURE(s): GBUS - GALLBLADDER REASON: ruq pain ORDER NUMBER(s): [id number], ACCESSION NUMBER(s): [id number] Ultrasound right upper quadrant INDICATION: ruq pain Technique: 2-D real-time ultrasound was performed with axial and sagittal images submitted for evaluation. FINDINGS: Normal in size measuring 16 cm an echogenic without mass. There is sludge in the gallbladder. Gallbladder wall is normal measuring 1.9 mm. Common duct normal size 3.8 mm. Negative sonographic Farooq's sign Pancreas is normal in appearance. Right kidney 9.4 cm in length without mass stone or hydronephrosis. No free fluid IMPRESSION: 1. Sludge in the gallbladder. No biliary dilatation 2. Fatty liver. ATED BY: SEDRICK BURDEN MD DICTATED DATE/TIME: 08/14/24 153 SIGNED BY: SEDRICK BURDEN MD SIGNED DATE/TIME: 08/14/24 153 CC: [place] [id number] Ph: [phone] DIAGNOSTIC IMAGING Diagnostic Imaging Report : [id number] Signed PATIENT: ADRIAN PALOMAREST: [id number] UNIT: [id number] : 1990 LOC: [facility] ROOM / BED: [facility] / B AGE / SEX: 33 / F ADM STATUS: ADM IN SERVICE 1220 ORDERING PHYSICIAN: DARIANA PIPER PROCEDURE(s): ABPL - CT AB PEL WO CON-NO ORAL OR IV REASON: SUSPECTED SPLENIC SC CRISIS , ABDOMINAL PAIN ORDER NUMBER(s): [id number], ACCESSION NUMBER(s): [id number] CT ABDOMEN AND PELVIS WITHOUT CONTRAST CLINICAL HISTORY: SUSPECTED SPLENIC SC CRISIS , ABDOMINAL PAIN TECHNIQUE: Multiple contiguous axial images of the abdomen and pelvis without intravenous contrast. The images were reformatted degenerate coronal and sagittal reconstructions. All CT scans at this medical facility are performed using dose modulation techniques as appropriate to a performed exam including the following:Automated exposure control was utilized; adjustment of the MA and/or KV according to patient size; and use of iterative reconstruction technique. Radiation Dose Information: CT Dose: CTDI volume is 5 mGy. Dose-length product is 256 mGy*cm Comparison: None FINDINGS: Evaluation of the abdomen and pelvis is limited without intravenous contrast. The left kidney is asymmetrically larger than the right. There is left perinephric fat stranding. There is no evidence of nephrolithiasis or hydronephrosis. There is no evidence of a ureteral calculus or hydroureter. There is diffuse fatty infiltration of the liver. There is a 3.0 x 2.3 cm focal hypoattenuating area adjacent to the gallbladder. There is hyperdense sludge in the gallbladder. The pancreas, adrenal glands, and spleen appear within normal limits. There is no gross evidence of abdominal lymphadenopathy. There is no free fluid or free air. The stomach grossly appears unremarkable. The small and large bowel loops demonstrate normal caliber and appear within normal limits.. There is a normal- appearing appendix seen in the right lower quadrant abdomen. The abdominal aorta and IVC appear within normal limits. The bladder appears unremarkable for the degree of distention. Pelvic organ appears within normal limits. There is no gross evidence of a pelvic mass. There is no free fluid collection. Lung bases are clear. There is no acute osseous abnormality. IMPRESSION: 1. The left kidney is asymmetrically larger than the right and there is left perinephric fat stranding suggesting inflammation. There is no evidence of nephrolithiasis or hydronephrosis. Clinical correlation for pyelonephritis is recommended. 2. Diffuse fatty infiltration of the liver. There is a 3.0 x 2.3 cm focal hypoattenuating area in the liver adjacent to the gallbladder fossa. Hepatic lesion is not excluded. Further evaluation with multiphase CT or MRI abdomen with contrast is recommended. 3. Hyperdense sludge in the gallbladder. HS:Y ATED BY: LINO REYES MD DICTATED DATE/TIME: 08/15/24 6029 SIGNED BY: LINO REYES MD SIGNED DATE/TIME: 08/15/24 1456 CC: [facility] [id number] [place] [address] Ph: [phone] DIAGNOSTIC IMAGING Diagnostic Imaging Report : [id number] Signed PATIENT: ADRIAN PALOMAREST: [id number] UNIT: [id number] : 1990 LOC: [facility] ROOM / BED: [address] [place] [address] AGE / SEX: 33 / F ADM STATUS: ADM IN SERVICE 1415 ORDERING PHYSICIAN: FRANCIE AMARAL MD PROCEDURE(s): GBNM - NM HIDA SCAN REASON: ruq pain, elevated liver enzymes, gall bladder sludge ORDER NUMBER(s): [id number], ACCESSION NUMBER(s): [id number] Procedure: NM NM HIDA SCAN Exam Date: 08/15/2024 06:45 PM Clinical History: ruq pain, elevated liver enzymes, gall bladder sludge Comparison Study: None Nuclear Medicine Hepatobiliary Scan. Technique: Following the intravenous administration of 5.5 mCi of technetium 99m labeled Choletec multiple planar abdominal planar images were obtained in anterior projection in 5 minute intervals for 60 minutes . Right lateral images were obtained at 65 minutes after injection. Findings: The liver appears grossly normal in size. There is no abnormal persistence of the cardiac or blood pool activity. There is prompt visualization of the gallbladder and excretion of activity into the small bowel. Impression: Unremarkable hepatobiliary study without evidence of acute cholecystitis. ATED BY: RAUDEL HAM MD DICTATED DATE/TIME: 08/15/242022 SIGNED BY: RAUDEL HAM MD SIGNED DATE/TIME: 08/15/242022 CC: [address] [address] Ph: [phone] DIAGNOSTIC IMAGING Diagnostic Imaging Report : [id number] Signed PATIENT: ADRIAN PALOMAREST: [id number] UNIT: [id number] : 1990 LOC: [facility] ROOM / BED: [facility] B AGE / SEX: 33 / F ADM STATUS: ADM IN SERVICE 1840 ORDERING PHYSICIAN: STACEY GLEASON PROCEDURE(s): MRCP - MRCP MRI REASON: r/o obstruction ORDER NUMBER(s): [id number], ACCESSION NUMBER(s): [id number] MRI Abdomen, Pre and Post Contrast Exam Date: 08/15/2024 08:21 AM Comparison: Ultrasound dated 08/14/2024 History: r/o obstruction Technique: Multisequence multiplanar MRI images were obtained. 1. Coronal T1 Localizer 2. Coronal and axial T2 HASTE 3. Axial T1 in/out of phase, Axial T1 VIBE Melendrez, Axial T1 IR 4. Axial T2 HASTE Fat Saturation 5. Axial T1 FLASH, pre- and post-contrast 6. Axial T1 Fat Saturation, post-contrast 7. Axial Multiple B value diffusion-weighted sequences 8. MRCP including 3D SPACE, Radial 2D slabs and SPACE 3D MIP images Findings: Liver: Borderline hepatomegaly, 16.1 cm craniocaudal. Spleen: Unremarkable. Pancreas: The pancreas is normal in appearance without focal lesions. Gallbladder and ducts: Gallbladder sludge is present. Mild pericholecystic edema. The cystic duct, right and left hepatic ducts, common hepatic duct, and common bile ducts are unremarkable. The pancreatic duct is within normal limits. Adrenal glands: Unremarkable. Kidneys: Normal enhancement without suspicious lesions or hydronephrosis. Visualized bowel: Grossly unremarkable. Vasculature: Unremarkable. Lymphadenopathy: No evidence for lymphadenopathy. Ascites: Absent. Musculoskeletal: Bone marrow signal is normal. IMPRESSION: Gallbladder sludge is present. Mild pericholecystic edema. No intra or extrahepatic biliary duct dilation. 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 daily -please follow up with the primary care physician in 1 week -please repeat labs CBC, BNP with primary care physician in the coming up follow up -please follow up with the marketing strategist for further evaluation and care of sickle cell anemia and further evaluation of thrombocytopenia and anemia -patient was advised to maintain liquid diet for next 2 weeks until pain subsides totally -patient was advised to follow up with the marketing strategist for further evaluation and care of sickle cell anemia -plan is to continue folic acid and hydroxyurea -avoid dehydration and infection Discharge Statement: "Patient was advised to return to the ER or call 911 if any headaches, dizziness, shortness of breath, chest pain, abdominal pain, bleeding, fevers, or worsening of medical condition. Patient was counseled about treatment plan, medications, possible side effects, patientverbalized understanding. All questions were answered to the best of my ability. This discharge took greater then 30 minutes in planning, reviewing documentation, counseling the patient, and discussing with other team members." ASSESSMENT ASSESSMENT Assessment DARIANA PIPER RESIDENT Aug 17, 2024 10:01
[2024-08-17 10:30] LABS: Hepatitis A Ab IgM Negative; Hepatitis B Core IgM Negative (Negative); Hepatitis B Surface Antigen Negative (Negative); Hepatitis C Antibody Negative (Negative)
--- NOTE | 2024-08-17 11:26 | DVHPNRES ---
Progress Note Date Seen: Aug 17, 2024 Resident Creating Document: VANNESSA CHAN RESIDENT Medical Necessity Reason Pt with a Central, PICC or Fol: No (RN) Subjective Review of Systems Patient seen and examined at bedside. Patient nausea and vomiting significantly improved Objective vital signs Vital Sign Date Time Temp Pulse Resp B/P (MAP) Pulse Ox O2 Delivery O2 Flow Rate FiO2 08/17/24 08:44 98.1 70 16 152/107 (122) 99 98.1 08/17/24 07:55 Room Air* 0 21 Total Intake and Output 08/16/24 08/16/24 08/17/24 15:00 23:00 07:00 Intake Total 50.2 ml 2025 ml 1200 ml Balance 50.2 ml 2025 ml 1200 ml medications Current Medications Medications Dose Ordered Sig/Jolie Route Start Time Stop Time Status Last Admin Dose Admin Ceftriaxone Sodium 50 ml @ 100 mls/hr DAILY@09 IV 08/15/24 09:00 Hold 08/15/24 09:45 100 MLS/HR Metronidazole 100 ml @ 100 mls/hr Q8HR IV 08/14/24 22:00 Hold 08/16/24 04:55 100 MLS/HR Ondansetron HCl 4 mg Q4HP PRN IV 08/14/24 18:45 08/16/24 21:10 4 MG Morphine Sulfate 2 mg Q4HPRN PRN IV 08/14/24 18:45 08/17/24 04:36 2 MG Metoclopramide HCl 5 mg Q6HPRN PRN IV 08/15/24 10:15 08/16/24 09:49 5 MG Hydroxyurea 500 mg DAILY PO 08/16/24 10:00 08/17/24 09:46 500 MG Folic Acid 1 mg/ Dextrose 50.2 ml @ 200.8 mls/ hr DAILY INJ 08/16/24 10:00 08/17/24 09:56 200.8 MLS/HR Famotidine 20 mg Q12HR IV 08/15/24 22:00 08/17/24 09:47 20 MG Examination: GENERAL:Normal, HEENT:Normal, NECK:Normal, LUNGS:Normal, CVS:Normal, ABDOMEN:Normal, MSK:Normal, SKIN:Normal, NEURO:Normal laboratory and microbiology Laboratory Tests 08/17/24 07:12 Test 08/17/24 07:12 Range/Units Serum Glucose 109 H 74-106 mg/dL Problem List/Assessment/Plan Problem List/Assessment/Plan Abdominal pain likely related sickle cell crisis Ruled out acute cholecystitis ? Sickle cell crisis ? Sickle cell sequestration Microcytic anemia ? Hemolysis Elevated bilirubin and transaminitis Plan/recommendation Dr. Robins -NOEL scan ruled out acute cholecystitis, MRCP did not show any lesion or mass. Significantly improved symptoms with IV hydration pain management likely elevated liver enzymes related to sickle cell crisis. -follow up in GI clinic for further evaluation management of elevated liver enzymes, can follow with CEA, ferritin, AFP, JAIRON. -continue with IV hydration and pain management for possible sickle crisis. -acute hepatitis panel pending. -symptomatic control with ondansetron and metoclopramide for nausea and vomiting. -rest of the management per hospitalist team. -no need for any acute GI intervention at this point. Plan discussed with: Patient, Other (RN) VANNESSA CHAN RESIDENT Aug 17, 2024 11:26
[2024-08-17] MEDS ORDERED: FOLI-119 PO ×2 (12:52→15:10)
[2024-08-17] MEDS ORDERED: HYDR500C3 PO ×2 (12:52→15:10)
[2024-08-17 13:00] VITALS: BP 136/82; PULSE 77; RESP 16; TEMP 98.1; O2SAT 98
[2024-08-17] MEDS ORDERED: HYDR-4902 PO (15:14)
[2024-08-17] MEDS ORDERED: IBUP-1454 PO (15:55)
[2024-08-17] MEDS ORDERED: ZOFR4T PO (15:55)
[2024-08-18 07:07] LABS: AFP Serum Tumor Marker <1.8 ng/mL (0.0-6.4); Carbohydrate Antigen 19-9 <2 U/mL (0-35)
[2024-08-18 09:07] LABS: Anti-Nuclear Antibody Direct Negative (Negative)
== END 2024-08-17 15:46 | disposition home or self-care (01) | DRG 662 ==
LOC: ER 09:12 → OVERFLOW 18:40 → WEST WING 21:09
PROVIDERS: ADMIT Student in an Organized Health Care Education/Training Program; ATTEND Student in an Organized Health Care Education/Training Program
DX: D57.00 Hb-SS disease with crisis, unspecified (principal); N17.0 Acute kidney failure with tubular necrosis; K55.059 Acute (reversible) ischemia of intestine, part and extent unspecified; R65.10 Systemic inflammatory response syndrome (SIRS) of non-infectious origin without acute organ dysfunction; D69.6 Thrombocytopenia, unspecified; K59.00 Constipation, unspecified; E87.6 Hypokalemia; Z88.5 Allergy status to narcotic agent; Z91.012 Allergy to eggs; Z91.018 Allergy to other foods; Z79.899 Other long term (current) drug therapy; Z98.891 History of uterine scar from previous surgery
CPT/HCPCS: 36415; 74176; 74181; 76705; 78226; 80053; 80074; 81001; 81025; 82105; 82378; 83010; 83605; 83615; 83690; 83735; 85007; 85014; 85018; 85025; 85027; 85045; 86038; 86301; 86850; 86900; 86901; 99291; G0378; J0692; J2405; J3480; J3490; J7042; J7060

== ENCOUNTER 2025-06-19 06:12 | Emergency (ER) | payer MEDICAID ==
[~2025-06-19] VITALS: Ht 147.3 cm; Wt 67.9 kg
[~2025-06-19 06:12] MED LIST changes: -AMOX500C2 PO; +FOLI-119 PO; +HYDR-4902 PO; +HYDR500C3 PO; +IBUP-1454 PO; -IBUP-1455 PO; +ZOFR4T PO
--- NOTE | 2025-06-19 06:54 | ED.PDOC ---
Sickle cell HPI Comments 34-year-old female who presents to the ED with a chief complaint of sickle cell crisis onset 4 days. Patient states she is currently experiencing a sickle cell crisis, as well as back pain, headache, insomnia. She is currently 36 weeks , P:2 A:1. Was seen at [facility] 3 days ago, was sent home with a prescription of Tylenol. Patient has not seen PCP or OBGYN recently. She took 1000 mg of Tylenol around 05:00. Denies dizziness, chest pain, shortness of breath, fever, chills, cough, congestion, nausea, vomiting, diarrhea, hematemesis, dysuria, hematuria, numbness/ tingling. No other symptoms or modifying factors present at this time. Chief Complaint: SICKLE CELL CRISIS Time Seen by MD: 06:45 Primary Care Provider: irma Rivas Notes: Medications, Allergies Information Source: Patient Mode of Arrival: Ambulatory Severity: Moderate Timing: Days Duration: Since onset Prehospital treatment: None Onset: Spontaneous Symptoms: Pain Location of pain: Head, Back, Other History of: Pain Past Medical History PAST MEDICAL HISTORY: UTI'S Past Medical History (Other): sickle cell Surgical History: , Tonsillectomy ICU STAFF NURSE History: No Pertinent ICU STAFF NURSE History Family History Family History: Unknown Social History Smoker: Non-Smoker Alcohol: Denies ETOH Use Drugs: Denies Drug Use Lives In: Home Constitutional: reports: others (generalized body pain); denies: chills, diaphoresis, fatigue, fever, malaise, sweats, weakness EENTM: denies: blurred vision, double vision, ear bleeding, ear discharge, ear drainage, ear pain, ear ringing, eye pain, eye redness, hearing loss, mouth pain, mouth swelling, nasal discharge, nose bleeding, nose congestion, nose pain, photophobia, tearing, throat pain, throat swelling, voice changes, others Respiratory: denies: cough, hemoptysis, orthopnea, SOB at rest, shortness of breath, SOB with excertion, stridor, wheezing, others Cardiovascular: denies: chest pain, dizzy spells, diaphoresis, Dyspnea on exertion, edema, irregular heart beat, left arm pain, lightheadedness, palpitations, PND, syncope, others Gastrointestinal: denies: abdomen distended, abdominal pain, blood streaked bowels, constipated, diarrhea, dysphagia, difficulty swallowing, hematemesis, melena, nausea, poor appetite, poor fluid intake, rectal bleeding, rectal pain, vomiting, others Genitourinary: reports: ; denies: abnormal vagina bleeding, burning, dyspareunia, dysuria, flank pain, frequency, hematuria, incontinence, pain, vagina discharge, urgency, others Neurological: reports: headache; denies: dizziness, fainting, left sided numbness, left sided weakness, numbness, paresthesia, pre-existing deficit, right sided numbness, right sided weakness, seizure, speech problems, tingling, tremors, weakness, others Musculoskeletal: reports: back pain; denies: gout, joint pain, joint swelling, muscle pain, muscle stiffness, neck pain, others Integumetry: denies: bruises, change in color, change in hair/nails, dryness, laceration, lesions, lumps, rash, wounds, others Allergic/Immunocompromised: denies: Difficulty Healing, Frequent Infections, Hives, Itching, others Hematologic/Lymphatic: denies: anemia, blood clots, easy bleeding, easy bruising, swollen glands, others Endocrine: denies: excessive hunger, excessive sweating, excessive thirst, excessive urination, flushing, intolerance to cold, intolerance to heat, unexplained weight gain, unexplained weight loss, others Psychiatric: reports: sleepless; denies: anxiety, bipolar disorder, depression, hopeless, panic disorder, schizophrenia, suicidal, others All Other Systems: Reviewed and Negative Physical Exam General Appearance: Mild Distress, Normal HEENT: Normal ENT Inspection, Pharynx Normal, TMs Normal Neck: Full Range of Motion, Non-Tender, Normal, Normal Inspection Respiratory: Chest Non-Tender, Lungs Clear, No Accessory Muscle Use, No Respiratory Distress, Normal Breath Sounds Cardiovascular: No Edema, No JVD, No Murmur, No Gallop, Normal Peripheral Pulses, Regular Rate/Rhythm Breast Exam: Deferred Gastrointestinal: No Organomegaly, Non Tender, No Pulsatile Mass, Normal Bowel Sounds, Soft Genitalia: Deferred Pelvic: Deferred Rectal: Deferred Extremities: No calf tenderness, Normal capillary refill, Normal inspection, Normal range of motion, Non-tender, No pedal edema Musculoskeletal : Apperance: Normal Neurologic: Alert, [employer] sales [employer] II-XII nml as Tested, No Motor Deficits, Normal Affect, Normal Mood, No Sensory Deficits Cerebellar Function: Normal Reflexes: Normal Skin: Dry, Normal Color, Warm Lymphatic: No Adenopathy Was a procedure done? Was a procedure done?: No Sickle cell Differential Dx Differential Diagnosis: Vasoocculsive Crisis X-Ray, Labs, Meds, VS Vital Signs Date Time Temp Pulse Resp B/P (MAP) Pulse Ox O2 Delivery O2 Flow Rate FiO2 06/19/25 09:05 87 16 123/85 06/19/25 08:21 86 19 123/74 06/19/25 08:01 97.3 86 19 123/74 (90) 95 97.3 06/19/25 08:01 86 19 95 Room Air* 0 21 06/19/25 07:50 98.0 90 15 121/84 (96) 98 98.0 06/19/25 06:14 98.0 95 18 142/94 98 98.0 Lab Test 06/19/25 06:55 Range/Units White Blood Count 14.7 H 4.4-10.8 10^3/uL Red Blood Count 3.05 L 4.0-5.20 10^6/uL Hemoglobin 9.3 L 12.2-16.2 g/dL Hematocrit 27.8 L 36.0-46.0 % Mean Corpuscular Volume 91.4 80.0-100.0 fL Mean Corpuscular Hemoglobin 30.6 28.0-32.0 pg Mean Corpuscular Hemoglobin Concent 33.4 32.0-36.0 g/dL Red Cell Distribution Width 16.8 H 11.8-14.3 % Platelet Count 117 L 140-450 10^3/uL Mean Platelet Volume 10.5 6.9-10.8 fL Neutrophils (%) (Auto) 37.0-80.0 % Lymphocytes (%) (Auto) 10.0-50.0 % Monocytes (%) (Auto) 0.0-12.0 % Basophils (%) (Auto) 0.0-2.0 % Neutrophils # (Auto) 1.6-8.6 10 ^3/uL Lymphocytes # (Auto) 0.4-5.4 10 ^3/uL Monocytes # (Auto) 0-1.3 10 ^3/uL Differential Total Cells Counted 100.0 100 Neutrophils % (Manual) 70 37.0-80.0 Band Neutrophils % (Manual) 5 Lymphocytes % (Manual) 18 10.0-50.0 Monocytes % (Manual) 4 0-12 Eosinophils % (Manual) 0 0-7 Basophils % (Manual) 0 0.0-2.0 Metamyelocytes % (manual) 2 Myelocytes % (Manual) 1 Promyelocytes % (Manual) 0 Blast Cells % (Manual) 0 Nucleated Red Blood Cells 8.0 % Reactive Lymphocytes 0 Platelet Estimate Decreased Large Platelets Few Giant Platelets Moderate Anisocytosis (manual) Slight Sickle Cells Few Target Cells Moderate Schistocytes Few Reticulocyte Count (auto) 8.7 H 0.5-1.5 % Sodium Level 140 136-145 mmol/L Potassium Level 3.6 3.5-5.1 mmol/L Chloride Level 109 H 98-107 mmol/L Carbon Dioxide Level 20 20-31 mmol/L Anion Gap 11 5-15 Blood Urea Nitrogen < 5 L 9-23 mg/dL Creatinine 0.63 0.550-1.02 mg/dL Glomerular Filtration Rate Calc 119 >90 mL/min BUN/Creatinine Ratio 7.9 L 10.0-20.0 Serum Glucose 89 74-106 mg/dL Calcium Level 8.3 L 8.7-10.4 mg/dL Current Medications Medications (Trade) Dose Ordered Sig/Jolie Route Start Time Stop Time Status Last Admin Sodium Chloride 1,000 ml @ 1,000 mls/hr Q1H ONCE IV 06/19/25 07:00 06/19/25 07:59 DC 06/19/25 08:19 Ondansetron HCl (Zofran) 4 mg ONCE ONCE IV 06/19/25 07:00 06/19/25 07:01 DC 06/19/25 08:21 Hydromorphone HCl (Dilaudid Injection) 1 mg ONCE ONCE IV 06/19/25 07:00 06/19/25 07:01 DC 06/19/25 08:21 Time of 1ST Reevaluation: 07:15 Reevaluation 1ST: Unchanged Patient Education/Counseling: Diagnosis, Treatment, Prognosis Family Education/Counseling: No Family Present Departure 1 Departure Time of Disposition: 09:19 (Patient likely with a sickle cell crisis. Patient received fluids oxygen and pain medicine. We will discharge patient home with outpatient follow up) Impression: Primary Impression: Sickle cell crisis Disposition: 01 HOME / SELF CARE / HOMELESS Condition: Stable Additional Instructions: It is important to follow up with your regular doctors. Please call for an appointment this week Discharged With: Self Critical Care Note Critical Care Time?: No Stability Stability form required: No Heart Score Heart Score: Heart Score Response (Comments) Value History N/A 0 EKG N/A 0 Age N/A 0 Risk Factors N/A 0 Troponin N/A 0 Total 0 I personally scribed for BRANDI WALKER MD ([email or web address]) on 06/19/25 at 06:54. Electronically submitted by Zeinab Olmos ([email or web address]). I personally scribed for BRANDI WALKER MD ([email or web address]) on 06/19/25 at 06:59. Electronically submitted by Zeinab Olmos ([email or web address]). BRANDI WALKER MD Jun 19, 2025 06:54
[2025-06-19 07:24] LABS: Potassium 3.6 mmol/L (3.5-5.1); Sodium 140 mmol/L (136-145)
[2025-06-19 07:25] LABS: Anion Gap 11 (5-15); Carbon Dioxide 20 mmol/L (20-31)
[2025-06-19 07:27] LABS: Calcium 8.3 mg/dL (8.7-10.4); Chloride 109 mmol/L (98-107)
[2025-06-19 07:30] LABS: BUN/Creatinine Ratio 7.9 (10.0-20.0); Blood Urea Nitrogen < 5 mg/dL (9-23); Glucose 89 mg/dL (74-106)
[2025-06-19 07:31] LABS: Hematocrit 27.8 % (36.0-46.0); Hemoglobin 9.3 g/dL (12.2-16.2); Mean Corpuscular Hemoglobin 30.6 pg (28.0-32.0); Mean Corpuscular Volume 91.4 fL (80.0-100.0)
[2025-06-19 08:01] VITALS: PULSE 86; RESP 19; O2SAT 95
[2025-06-19] MEDS: SODIUM CHLORIDE 0.9% 1,000 ML IV ONE (08:19)
[2025-06-19] MEDS: ONDANSETRON HCL 4 MG/2 ML VIAL IV ONE (08:21)
[2025-06-19] MEDS: HYDROmorphone HCL 2 MG/ML VL/or syr IV ONE (08:21)
[2025-06-19 08:44] LABS: Anisocytosis Slight; Nucleated Red Blood Cells % 8.0 %; Total Cells Counted 100.0 (100)
[2025-06-19 08:45] LABS: Giant Platelets Moderate
[2025-06-19 08:46] LABS: Sickle Cells FEW
[2025-06-19 10:44] VITALS: BP 144/96; PULSE 95; RESP 16; O2SAT 97
== END 2025-06-19 10:55 | disposition home or self-care (01) ==
LOC: ER 06:12
DX: O99.013 Anemia complicating pregnancy, third trimester (principal); D57.00 Hb-SS disease with crisis, unspecified; Z3A.36 36 weeks gestation of pregnancy; Z90.89 Acquired absence of other organs; Z79.899 Other long term (current) drug therapy
CPT/HCPCS: 36415; 80048; 85007; 85027; 85045; 96361; 96374; 96375; 99285; J1171; J2405; J7030